=== PATIENT | female | born 1955 | race African-American/Black ===

== ENCOUNTER 2018-03-12 21:32 | Inpatient (IN) | payer MEDICAID, SELFPAY ==
[2018-03-12] MEDS ORDERED: NA CHLORIDE 0.9% 1,000 ML ONE (22:07)
[2018-03-12 22:16] LABS: Absolute Lymphocytes (CBC) 3.1 K/uL (0.7-4.9); Absolute Monocytes 1.3 K/uL (0.1-1.3); Absolute Neutrophil 20.6 K/uL (1.8-8.0); Basophils % 0.6 % (0-1.3); Eosinophils % 0.4 % (0-4.4); Lymphocytes % 12.3 % (15.3-44.8); MCH 27.4 pg (27.0-35.0); MCV 83.3 fL (80-100); MPV 9.5 fL (7.6-11.3); Monocytes % 5.2 % (3.3-12.3); RBC Red Blood Cell Count 4.93 M/uL (3.86-4.86)
[2018-03-12 22:20] LABS: Protime INR 1.16
[2018-03-12] MEDS ORDERED: LORazepam 2 MG/ML VIAL ONE (22:27)
[2018-03-12 22:28] LABS: Glucose Level 170 mg/dL (65-120); Lipase 38 U/L (22-51)
[2018-03-12 22:30] LABS: Bicarbonate 24 mEq/L (21-31); Sodium Level 137 mEq/L (135-145)
[2018-03-12 22:34] LABS: ALT/SGPT 19 IU/L (10-60); AST/SGOT 22 IU/L (10-42); Albumin 4.3 g/dL (3.2-5.5); Alcohol Serum/Plasma < 10 mg/dl; Alkaline Phosphatase 80 IU/L (42-121); BUN Blood Urea Nitrogen 11 mg/dL (6-20); Bilirubin Direct 0.1 mg/dL (0-0.2); Bilirubin Total 0.7 mg/dL (0.3-1.2); Creatine Phosphokinase 87 IU/L (22-269); Protein, Total 8.4 g/dL (6.0-8.3); Salicylates Level < 4.0 mg/dl (<30)
[2018-03-12 22:36] LABS: CKMB Creatine Kinase MB 1.5 ng/ml (0.3-4.0); Potassium 2.6 mEq/L (3.6-5.0)
[2018-03-12 23:06] LABS: Thyroid Stimulating Hormone 2.95 uIU/mL (0.34-5.60)
[2018-03-12] MEDS ORDERED: CEFTRIAXONE/SWI 1gm 1 GM/10 ML SYR ONE (23:13)
[2018-03-12 23:14] LABS: Urine Blood NEGATIVE (NEG); Urine Glucose NEGATIVE (NEG); Urine Protein 1+ (NEG)
[2018-03-12 23:26] LABS: Barbiturates NEGATIVE; Benzodiazepines POSITIVE; Cocaine NEGATIVE; METHAMPHETAM NEGATIVE; Opiates NEGATIVE; Phencyclidine NEGATIVE; THC Cannibis NEGATIVE
[2018-03-12 23:38] LABS: Blood Morphology Comment NOT SEEN (NOT SEEN); Platelet Estimate INCR
--- NOTE | 2018-03-12 23:53 | EDPHYS ---
Physician Documentation [facility] Name: Hue Chiu Age: 63 yrs Sex: Female : 1955 Arrival Date: 03/12/2018 Time: 21:40 Bed 3 Private MD: ED Physician Arturo Bhatti HPI: 03/12 21:50 This 63 yrs old Black Female presents to ER via Wheelchair with complaints of dequan HALLUCINATIONS. 21:50 The patient presents with confusion, trouble concentrating. Onset: The symptoms/episode dequan began/occurred just prior to arrival, this morning. Possible causes: unknown. Associated signs and symptoms: The patient has no apparent associated signs or symptoms. Current symptoms: In the emergency department the patient's symptoms are unchanged from the initial presentation, despite home interventions. Patient's baseline: Neuro: alert and fully oriented. The patient has not experienced similar symptoms in the past. Historical: - Allergies: 21:49 No Known Allergies; tl2 - Home Meds: 21:49 gabapentin Oral [Active]; Hydrochlorothiazide Oral [Active]; Hydrocodone-Acetaminophen tl2 Oral [Active]; Lipitor Oral [Active]; MUSCLE RELAXER [Active]; Norvasc Oral [Active]; vitamins [Active]; Xanax Oral [Active]; - PMHx: 21:49 Hypertension; tl2 - Immunization history:: Adult Immunizations up to date. - Social history:: Smoking status: Patient/guardian denies using tobacco. - Family history:: not pertinent. ROS: 21:50 Constitutional: Negative for fever, chills, and weight loss, Eyes: Negative for injury, dequan pain, redness, and discharge, ENT: Negative for injury, pain, and discharge, Neck: Negative for injury, pain, and swelling, Cardiovascular: Negative for chest pain, palpitations, and edema, Respiratory: Negative for shortness of breath, cough, wheezing, and pleuritic chest pain, Abdomen/GI: Negative for abdominal pain, nausea, vomiting, diarrhea, and constipation, Back: Negative for injury and pain, : Negative for injury, bleeding, discharge, and swelling, MS/Extremity: Negative for injury and deformity, Skin: Negative for injury, rash, and discoloration, Psych: Negative for depression, anxiety, suicide ideation, homicidal ideation, and hallucinations, Allergy/Immunology: Negative for hives, rash, and allergies, Endocrine: Negative for neck swelling, polydipsia, polyuria, polyphagia, and marked weight changes, Hematologic/Lymphatic: Negative for swollen nodes, abnormal bleeding, and unusual bruising. 21:50 Neuro: Positive for altered mental status. Exam: 21:50 Constitutional: This is a well developed, well nourished patient who is awake, alert, dequan and in no acute distress. Head/Face: Normocephalic, atraumatic. Eyes: Pupils equal round and reactive to light, extra-ocular motions intact. Lids and lashes normal. Conjunctiva and sclera are non-icteric and not injected. Cornea within normal limits. Periorbital areas with no swelling, redness, or edema. ENT: Nares patent. No nasal discharge, no septal abnormalities noted. Tympanic membranes are normal and external auditory canals are clear. Oropharynx with no redness, swelling, or masses, exudates, or evidence of obstruction, uvula midline. Mucous membranes moist. Neck: Trachea midline, no thyromegaly or masses palpated, and no cervical lymphadenopathy. Supple, full range of motion without nuchal rigidity, or vertebral point tenderness. No Meningismus. Chest/axilla: Normal chest wall appearance and motion. Nontender with no deformity. No lesions are appreciated. Cardiovascular: Regular rate and rhythm with a normal S1 and S2. No gallops, murmurs, or rubs. Normal PMI, no JVD. No pulse deficits. Respiratory: Lungs have equal breath sounds bilaterally, clear to auscultation and percussion. No rales, rhonchi or wheezes noted. No increased work of breathing, no retractions or nasal flaring. Abdomen/GI: Soft, non-tender, with normal bowel sounds. No distension or tympany. No guarding or rebound. No evidence of tenderness throughout. Back: No spinal tenderness. No costovertebral tenderness. Full range of motion. Female : Normal external genitalia. Skin: Warm, dry with normal turgor. Normal color with no rashes, no lesions, and no evidence of cellulitis. MS/ Extremity: Pulses equal, no cyanosis. Neurovascular intact. Full, normal range of motion. Psych: Awake, alert, with orientation to person, place and time. Behavior, mood, and affect are within normal limits. 21:50 Neuro: Orientation: appropriate for stated age, no acute changes, Mentation: slow to respond, Cerebellar function: is grossly normal based on the patient's age, no acute changes, Motor: moves all fours, Sensation: no obvious gross deficits, appropriate no acute changes, Gait: not tested. seizure activity, is not displayed by the patient. 23:50 Neck: ROM/movement: is normal, no acute changes, Meningeal signs: are not present, [facility] Kernig's sign is negative, Brudzinski's sign is negative. Vital Signs: 21:49 BP 152 / 80; Pulse 101; Resp 22; Temp 98.6(O); Pulse Ox 98% on R/A; Weight 104.33 kg; tl2 Height 5 ft. 3 in. (160.02 cm); Pain 0/10; 22:52 BP 129 / 72; Pulse 82; Resp 20; Pulse Ox 96% on R/A; mt 03/13 00:04 BP 134 / 73; Pulse 70; Resp 18; Pulse Ox 97% on R/A; tl2 03/12 21:49 Body Mass Index 40.74 (104.33 kg, 160.02 cm) tl2 MDM: 03/12 21:46 Patient medically screened. [facility] 21:53 Data reviewed: vital signs, nurses notes, lab test result(s), EKG, radiologic studies, [facility] plain films. 03/12 21:49 Order name: Basic Metabolic Panel; Complete Time: 23:[address] [facility] 03/12 21:49 Order name: BNP; Complete Time: 23:[address] [facility] 03/12 21:49 Order name: CBC with Diff; Complete Time: 23:[address] [facility] 03/12 21:49 Order name: Ckmb; Complete Time: 23:[address] [facility] 03/12 21:49 Order name: CPK; Complete Time: 23:[address] [facility] 03/12 21:49 Order name: LFT's; Complete Time: 23:[address] [facility] 03/12 21:49 Order name: Magnesium; Complete Time: 23:[address] [facility] 03/12 21:49 Order name: PT-INR; Complete Time: 22:[address] [facility] 03/12 21:49 Order name: Ptt, Activated; Complete Time: 22:[address] [facility] 03/12 21:49 Order name: Troponin (emerg Dept Use Only); Complete Time: 23:[address] [facility] 03/12 21:49 Order name: Acetaminophen; Complete Time: 23:[address] [facility] 03/12 21:49 Order name: ETOH Level; Complete Time: 23:[address] [facility] 03/12 21:49 Order name: Salicylate; Complete Time: 23:[address] [facility] 03/12 21:49 Order name: Urine Drug Screen; Complete Time: 01:[address] [facility] 03/12 21:49 Order name: XRAY Chest (1 view) [facility] 03/12 21:49 Order name: Lipase; Complete Time: 23:[address] [facility] 03/12 21:49 Order name: CT Head Brain wo Cont [facility] 03/12 21:49 Order name: TSH; Complete Time: 23:[address] [facility] 03/12 22:29 Order name: Blood Culture Adult (2) [facility] 03/12 23:05 Order name: Urine Dipstick--Ancillary (enter results); Complete Time: 23:48 [facility] 03/12 23:38 Order name: Manual Differential; Complete Time: 23:48 [facility] 03/12 23:49 Order name: Phosphorus [facility] 03/12 23:50 Order name: Phosphorus; Complete Time: 01:00 [facility] 03/12 21:49 Order name: EKG; Complete Time: 21:[address] [facility] 03/12 21:49 Order name: Cardiac monitoring; Complete Time: 21:[address] [facility] 03/12 21:49 Order name: EKG - Nurse/Tech; Complete Time: 22:[address] [facility] 03/12 21:49 Order name: IV Saline Lock; Complete Time: 21:[address] [facility] 03/12 21:49 Order name: Labs collected and sent; Complete Time: 21:[address] [facility] 03/12 21:49 Order name: O2 Per Protocol; Complete Time: 21:[address] [facility] 03/12 21:49 Order name: O2 Sat Monitoring; Complete Time: 21:[address] [facility] 03/12 21:49 Order name: Urine Dipstick-Ancillary (obtain specimen); Complete Time: 22:[address] [facility] 03/12 22:29 Order name: Stevens; Complete Time: 22:[address] [facility] 03/12 23:56 Order name: CONS Physician Consult EDHI Administered Medications: 22:11 Drug: NS 0.9% 1000 ml Route: IV; Rate: 1 bolus; Site: right antecubital; [facility] 03/13 01:43 Follow up: IV Status: Completed infusion; IV Intake: 1000ml [facility] 03/12 22:30 Drug: Ativan 1 mg Route: IVP; Site: right antecubital; tl2 23:00 Follow up: Response: No adverse reaction; Anxiety decreased tl2 23:23 Drug: Rocephin - (cefTRIAXone) 1 grams Route: IVPB; Infused Over: 30 mins; Site: right tl2 antecubital; 03/13 01:43 Follow up: IV Status: Completed infusion tl2 00:03 Drug: Potassium Chloride 40 mEq Route: PO; tl2 01:42 Follow up: Response: No adverse reaction tl2 00:03 Drug: Potassium Chloride 20 mEq Route: IV; Rate: per protocol; Site: right antecubital; tl2 01:42 Follow up: IV Status: Infusion continued upon admission tl2 01:00 Not Given (Duplicate Order): NS 0.9% with KCl 20 mEq/L 1000 ml IV at 125 ml/hr dequan continuous 01:42 Not Given (administered upon admission): Potassium Phosphate 15 mmol IV at per protocol tl2 once; dose as phosphate; infuse over 4-6 hours (mix in 250 mL NS) 01:42 Not Given (given upon admission): foLIC Acid 1 mg IVPB once tl2 Disposition: 03/12/18 23:53 Hospitalization ordered by Fabricio Portillo for Inpatient Admission. Preliminary diagnosis are Altered mental status, unspecified, Elevated white blood cell count, Vomiting, Hypokalemia. - Bed requested for Telemetry/MedSurg (Inpatient). - Status is Inpatient Admission. tl2 - Condition is Stable. - Problem is new. - Symptoms have improved. UTI on Admission? No Signatures: Dispatcher [employer] EDSilvia Friend RN RN mw Anderson, Corey, MD MD cha Knox, Taylor, RN RN tl2
--- NOTE | 2018-03-12 23:53 | ER ---
Nurse's Notes [facility] Name: Hue Chiu Age: 63 yrs Sex: Female : 1955 Arrival Date: 03/12/2018 Time: 21:40 Bed 3 Private MD: Diagnosis: Altered mental status, unspecified;Elevated white blood cell count;Vomiting;Hypokalemia Presentation: 03/12 21:43 Presenting complaint: Child states: Altered mental status. Patient talking to herself, mw staring at the ceiling. 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 Transition of care: patient was not received from another setting of care. Onset of symptoms was March 12, 2018 at 20:45. Care prior to arrival: None. 21:43 Method Of Arrival: Wheelchair mw 21:43 Acuity: LAKISHA 2 mw 21:44 Presenting complaint: Child states: Pt started acting strange and was not answering tl2 questions appropriately and it looked like she was seeing things. On arrival pt is able to recall name, and location but not time or situation. Denies any substance abuse. Denies pain. Family states they have never seen this behavior before. Transition of care: patient was not received from another setting of care. Onset of symptoms was March 12, 2018 at 20:00. Care prior to arrival: None. 21:44 Method Of Arrival: Wheelchair tl2 21:44 Acuity: LAKISHA 2 tl2 Triage Assessment: 21:49 General: Appears in no apparent distress. Behavior is cooperative, flat. Pain: Denies tl2 pain. Neuro: Level of Consciousness is awake, obeys commands, confused, Oriented to person, place, Corporate Quality Engineer are equal bilaterally Speech is normal, Facial symmetry appears normal, Denies dizziness. Cardiovascular: Denies chest pain. Respiratory: Airway is patent Respiratory effort is even, unlabored, Respiratory pattern is regular, symmetrical. GI: No signs and/or symptoms were reported involving the gastrointestinal system. : No signs and/or symptoms were reported regarding the genitourinary system. Derm: Skin is normal. Historical: - Allergies: 21:49 No Known Allergies; tl2 - Home Meds: 21:49 gabapentin Oral [Active]; Hydrochlorothiazide Oral [Active]; Hydrocodone-Acetaminophen tl2 Oral [Active]; Lipitor Oral [Active]; MUSCLE RELAXER [Active]; Norvasc Oral [Active]; vitamins [Active]; Xanax Oral [Active]; - PMHx: 21:49 Hypertension; tl2 - Immunization history:: Adult Immunizations up to date. - Social history:: Smoking status: Patient/guardian denies using tobacco. - Family history:: not pertinent. Screenin:54 Abuse screen: Denies threats or abuse. Nutritional screening: No deficits noted. tl2 Tuberculosis screening: No symptoms or risk factors identified. Fall Risk IV access (20 points). Mental Status- Overestimates/Forgets Limitations (15 pts.). Assessment: 21:55 General: see triage assessment. tl2 23:00 Reassessment: Pt was agitated during xray. MD notified, new order see MAR. tl2 Reassessment: Pt is resting quietly, relaxed. VSS, sotelo in place. Oriented to person and place. 03/13 00:04 Reassessment: Patient appears in no apparent distress at this time. Patient and/or tl2 family updated on plan of care and expected duration. Pain level reassessed. Pt appears more awake and alert, answers questions appropriately. Still cannot recall why she was brought to the hospital. Hallucinations have stopped. 00:47 Reassessment: Sister in law [place]. tl2 01:43 Reassessment: Patient appears in no apparent distress at this time. Patient and/or tl2 family updated on plan of care and expected duration. Pain level reassessed. Patient is alert, oriented x 3, equal unlabored respirations, skin warm/dry/pink. Pt stable and ready for transport to floor. Vital Signs: 03/12 21:49 BP 152 / 80; Pulse 101; Resp 22; Temp 98.6(O); Pulse Ox 98% on R/A; Weight 104.33 kg; tl2 Height 5 ft. 3 in. (160.02 cm); Pain 0/10; 22:52 BP 129 / 72; Pulse 82; Resp 20; Pulse Ox 96% on R/A; mt 03/13 00:04 BP 134 / 73; Pulse 70; Resp 18; Pulse Ox 97% on R/A; tl2 03/12 21:49 Body Mass Index 40.74 (104.33 kg, 160.02 cm) tl2 ED Course: 03/12 21:40 Patient arrived in ED. al2 21:44 Yari Mcduffie RN is Primary Nurse. tl2 21:46 Triage completed. mw 21:46 Arturo Bhatti MD is Attending Physician. dequan 21:49 Arm band placed on right wrist. tl2 21:54 Patient has correct armband on for positive identification. Bed in low position. Call tl2 light in reach. Side rails up X2. Adult w/ patient. 21:54 Inserted saline lock: 20 gauge in right antecubital area, using aseptic technique. tl2 Blood collected. placed by FELY Vega. Inserted saline lock: 20 gauge in left antecubital area, using aseptic technique. placed by FELY Vega. 22:23 Notified ED physician of a critical lab result(s). wbc of 25.2. fc 22:39 XRAY Chest (1 view) In Process Unspecified. EDMS 22:40 CT Head Brain wo Cont In Process Unspecified. EDMS 22:49 Sotelo cath inserted, using sterile technique, 16 Fr., by me, balloon inflated, urine jb5 specimen collected. 23:52 Fabricio Portillo MD is Hospitalizing Provider. [facility] 03/13 01:43 No provider procedures requiring assistance completed. Patient admitted, IV remains in tl2 place. Administered Medications: 03/12 22:11 Drug: NS 0.9% 1000 ml Route: IV; Rate: 1 bolus; Site: right antecubital; tl2 03/13 01:43 Follow up: IV Status: Completed infusion; IV Intake: 1000ml 2 03/12 22:30 Drug: Ativan 1 mg Route: IVP; Site: right antecubital; tl2 23:00 Follow up: Response: No adverse reaction; Anxiety decreased tl2 23:23 Drug: Rocephin - (cefTRIAXone) 1 grams Route: IVPB; Infused Over: 30 mins; Site: right tl2 antecubital; 03/13 01:43 Follow up: IV Status: Completed infusion tl2 00:03 Drug: Potassium Chloride 40 mEq Route: PO; tl2 01:42 Follow up: Response: No adverse reaction tl2 00:03 Drug: Potassium Chloride 20 mEq Route: IV; Rate: per protocol; Site: right antecubital; tl2 01:42 Follow up: IV Status: Infusion continued upon admission tl2 01:00 Not Given (Duplicate Order): NS 0.9% with KCl 20 mEq/L 1000 ml IV at 125 ml/hr [facility] continuous 01:42 Not Given (administered upon admission): Potassium Phosphate 15 mmol IV at per protocol tl2 once; dose as phosphate; infuse over 4-6 hours (mix in 250 mL NS) 01:42 Not Given (given upon admission): foLIC Acid 1 mg IVPB once tl2 Intake: 01:43 IV: 1000ml; Total: 1000ml. tl2 Outcome: 03/12 23:53 Decision to Hospitalize by Provider. [facility] 03/13 01:43 Admitted to Tele accompanied by nurse, accompanied by tech, via stretcher, room 401, tl2 with chart, Report called to FELY Villafana Condition: stable Discharge instructions given to patient, family, Instructed on the need for admit. 01:44 Patient left the ED. tl2 Signatures: Dispatcher [employer] EDMS Silvia Bob RN RN mw Anderson, Corey, MD MD cha Chretien, Felicia, RN RN fc Knox, Taylor, RN RN tl2 Siobhan Patel Moriah mt Love, Angelica al2
[2018-03-12] MEDS ORDERED: POTASSIUM CL SA 10 MEQ TAB PO ONE (23:56)
[2018-03-12] MEDS ORDERED: KCL 20 MEQ/100 mL IVPB 20 MEQ/100 ML BAG IV ONE (23:56)
[2018-03-13] MEDS ORDERED: ONDANSETRON 4 MG/2 ML VIAL IV PRN (00:17)
[2018-03-13] MEDS ORDERED: POTASSIUM PHOS 30 MM in NA CHLORIDE 0.9% 500 ML IV ONE (00:17)
[2018-03-13] MEDS ORDERED: NA CHLORIDE 0.9% 1,000 ML IV SCH (01:00)
[2018-03-13] MEDS ORDERED: FOLIC ACID 5 MG/ML VIAL ONE (01:15)
[2018-03-13] MEDS ORDERED: NA CHLORIDE 0.9% 500 ML ONE (01:16)
[2018-03-13] MEDS ORDERED: POTASSIUM PHOS IN 0.9 % NACL 15 MMOL/250 ML BAG IV ONE (01:23)
[2018-03-13] MEDS ORDERED: LORazepam 2 MG/ML VIAL IV ONE (01:56)
[2018-03-13] MEDS ORDERED: LORazepam 2 MG/ML VIAL IM ONE (02:02)
[2018-03-13] MEDS ORDERED: LORazepam 2 MG/ML VIAL ONE (02:02)
[2018-03-13] MEDS ORDERED: ZIPRASIDONE MESYLA 20 MG/VIAL IM ONE ×3 (02:10→23:02)
[2018-03-13] MEDS ORDERED: WATER FOR INJ,STERILE 10 ML ONE (02:15)
[2018-03-13] MEDS ORDERED: ZIPRASIDONE MESYLA 20 MG/VIAL IM PRN (02:39)
[2018-03-13] MEDS ORDERED: WATER FOR INJ,STERILE 10 ML IM PRN (02:39)
[2018-03-13] MEDS ORDERED: HYDRALAZINE HCL 20 MG/ML VIAL IV PRN (06:50)
[2018-03-13 07:15] LABS: Absolute Lymphocytes (CBC) 3.1 K/uL (0.7-4.9); Absolute Monocytes 1.4 K/uL (0.1-1.3); Absolute Neutrophil 17.6 K/uL (1.8-8.0); Basophils % 0.6 % (0-1.3); Eosinophils % 0.5 % (0-4.4); Hematocrit 38.4 % (36.0-45.0); Lymphocytes % 13.8 % (15.3-44.8); MCH 27.2 pg (27.0-35.0); MCV 83.6 fL (80-100); Monocytes % 6.3 % (3.3-12.3)
--- NOTE | 2018-03-13 07:17 | P.HP ---
Certification for Inpatient Patient admitted to: Inpatient With expected LOS: >2 Midnights Patient will require the following post-hospital care: None Practitioner: I am a practitioner with admitting privileges, knowledge of patient current condition, hospital course, and medical plan of care. Services: Services provided to patient in accordance with Admission requirements found in Title 42 Section 412.3 of the Code of Federal Regulations Patient History Date of Service: 03/13/18 Reason for admission: Altered mental status History of Present Illness: Patient is a 63-year-old female who presents to the hospital with altered mentation. The family states that she was not acting like herself. Normally she does all her own activities of daily living. She has a sister in law who lives around the corner from her. She states that she was staring and not responding appropriately. They decided to bring her into the hospital for further evaluation. In the ER she had a CT of the head which was negative. Patient had no meningeal signs. Her labs revealed significant hypokalemia and hypophosphatemia along with a leukocytosis. We were not able to identify a source of infection. Chest x-ray was negative. UA was negative. She had similar complaints a couple months ago when she came into the ER with a headache. At that time she was discharged home from the emergency room after her workup was unremarkable except she did have mildly elevated white blood cell count and a mildly decreased potassium level. She had a CT of the head at that time as well which did not reveal an acute pathology. Patient will be admitted to the hospital for further evaluation. The family states that she takes pain medication and anxiolytics daily. They are not sure if she has been taking her medicines as prescribed. Patient answers questions appropriately, but then she will go off on a tangent. She appears to have flights of ideas. Allergies No Known Allergies Allergy (Verified 03/13/18 02:49) - Past Medical/Surgical History Has patient received pneumonia vaccine in the past: No Diabetic: No -: HTN -: hypothyroid -: Chronic pain -: Anxiety disorder -: Left total knee replacement - Family History Father Family History: Reviewed- Non-Contributory - Social History Smoking Status: Current every day smoker Alcohol use: No CD- Drugs: Yes Caffeine use: No Place of Residence: Home Review of Systems 10-point ROS is otherwise unremarkable Physical Examination - Vital Signs Temperature: 98.2 F Blood Pressure: 127/63 Pulse: 102 Respirations: 18 Pulse Ox (%): 96 - Physical Exam General: Alert, In no apparent distress, Oriented x2, Other (Patient was combative after arriving on the floor) HEENT: Atraumatic, PERRLA, Mucous membr. moist/pink, EOMI, Sclerae nonicteric Neck: Supple, 2+ carotid pulse no bruit, No LAD, Without JVD or thyroid abnormality Respiratory: Clear to auscultation bilaterally, Normal air movement Cardiovascular: Regular rate/rhythm, Normal S1 S2, No murmurs Gastrointestinal: Normal bowel sounds, Soft and benign, Non-distended, No tenderness Musculoskeletal: No clubbing, No swelling, No tenderness Integumentary: No rashes Neurological: Normal gait, Normal speech, Normal strength at 5/5 x4 extr, Normal tone, Sensation intact, Cranial nerves 3-12 intact, Normal affect Lymphatics: No axilla or inguinal lymphadenopathy - Studies Laboratory Data (last 24 hrs) 03/12/18 21:50: Phosphorus 1.7 L 03/12/18 21:50: PT 13.7 H, INR 1.16, APTT 24.4 03/12/18 21:50: WBC 25.2 H*, Hgb 13.5, Hct 41.0, Plt Count 520 H 03/12/18 21:50: B-Natriuretic Peptide 31 03/12/18 21:50: Sodium 137, Potassium 2.6 L*, BUN 11, Creatinine 0.89, Glucose 170 H, Magnesium 2.0, Total Bilirubin 0.7, AST 22, ALT 19, Alkaline Phosphatase 80, Lipase 38 Microbiology Data (last 24 hrs): 03/12/18 23:18 Blood - Blood Anaerobic Blood Culture - Final 03/12/18 23:12 Blood - Blood Anaerobic Blood Culture - Final Assessment & Plan - Problems (Diagnosis) (1) Altered mental status Current Visit: Yes Status: Acute (2) Combative behavior Current Visit: Yes Status: Acute (3) Hypokalemia Current Visit: Yes Status: Acute (4) Hypophosphatemia Current Visit: Yes Status: Acute (5) Leukocytosis Current Visit: Yes Status: Acute - Plan Plan: 1. IV hydration 2. Resume home medications 3. Will give sedatives as needed. Family is to stay with the patient 4. Prophylactic IV antibiotics 5. If symptoms continue to worsen may need further diagnostic studies including MRI and LP 6. Replace electrolytes 7. GI and DVT prophylaxis Discharge Plan: Home Plan to discharge in: Greater than 2 days - Advance Directives Does patient have a Living Will: No Does patient have a Durable POA for Healthcare: No - Code Status/Comfort Care Code Status Assessed: Yes Code Status: Full Code Critical Care: No Time Spent Managing PTS Care (In Minutes): 50
--- NOTE | 2018-03-13 08:10 | RAD REPORT ---
EXAM DESCRIPTION: CT - Head Brain Wo Cont - 03/13/2018 6:41 am CLINICAL HISTORY: Transient alteration of awareness. A preliminary written report was provided at the time of the study, and the report was reviewed prio r to final dictation. COMPARISON: CT head January 22 TECHNIQUE: Axial 5 mm thick images of the head were obtained without IV contrast. All CT scans are performed using dose optimization technique as appropriate and may include automated exposure control or mA/KV adjustment according to patient size. FINDINGS: No intracranial hemorrhage, mass, edema or shift of mid-line structures. No acute infarcti on changes seen. No abnormal extra-axial fluid collections. Ventricles are normal. No significant atr ophy or chronic ischemic changes. Arterial and physiologic calcifications are present. Mastoid air cells and visualized portions of the paranasal sinuses are clear. No acute bony findings. IMPRESSION: Negative CT head for acute finding. No significant change from the comparison.
[2018-03-13 08:18] LABS: ALT/SGPT 16 IU/L (10-60); AST/SGOT 18 IU/L (10-42); Albumin 3.7 g/dL (3.2-5.5); Alkaline Phosphatase 70 IU/L (42-121); BUN Blood Urea Nitrogen 9 mg/dL (6-20); Bicarbonate 26 mEq/L (21-31); Bilirubin Total 0.6 mg/dL (0.3-1.2); Glucose Level 88 mg/dL (65-120); Magnesium 2.2 mg/dL (1.8-2.5); Potassium 3.4 mEq/L (3.6-5.0); Sodium Level 141 mEq/L (135-145)
[2018-03-13] MEDS: ENOXAPARIN 40 MG/0.4 ML SQ SCH (08:23)
[2018-03-13] MEDS: ASPIRIN EC 81 MG TAB PO SCH (08:23)
[2018-03-13] MEDS: CEFTRIAXONE/SWI 1gm 1 GM/10 ML SYR IV SCH (08:23)
--- NOTE | 2018-03-13 08:31 | RAD REPORT ---
EXAM DESCRIPTION: RAD - Chest Single View - 03/12/2018 10:41 pm CLINICAL HISTORY: Altered mental status, cough COMPARISON: January 22 TECHNIQUE: AP portable chest image was obtained 2231 hours . FINDINGS: Lung volumes are low. No failure, infiltrate or mass identifiable. Lung markings are simil ar to comparison. Heart and vasculature are normal. No measurable pleural effusion and no pneumothora x. No gross bony abnormality seen. No acute aortic findings suspected. IMPRESSION: No acute cardiopulmonary process. No significant interval change.
[2018-03-13] MEDS ORDERED: POTASSIUM PHOS IN 0.9 % NACL 15 MMOL/250 ML BAG IV SCH (09:00)
[2018-03-13] MEDS ORDERED: CEFTRIAXONE 1 GM/NS 50 ML 1 GM/50 ML BAG IV SCH (09:00)
--- NOTE | 2018-03-13 09:21 | RAD REPORT ---
EXAM DESCRIPTION: MIGUEL - VALENTINE - 03/13/2018 8:55 am CLINICAL HISTORY: Altered mental status, CVA, hypertension COMPARISON: None. TECHNIQUE: Real-time sonographic evaluation of both carotid systems was performed. Doppler interroga tion was performed with waveform tracing bilaterally. FINDINGS: Normal high resistance waveforms are noted in both external carotid arteries. The common c arotid arteries and internal carotid arteries show normal low resistance waveforms. Plaquing changes are present in each carotid bulb. This does not significantly narrow a vessel lumen. No dissection changes seen. Peak systolic and end diastolic velocity values and the ICA/CCA ratios a re in the non-hemodynamically significant range. Antegrade flow seen in both vertebral arteries. Velocity values and ratios were recorded and are retained in the patient's imaging records. IMPRESSION: Mild bilateral carotid bulb plaquing changes. No evidence of a hemodynamically significant stenosis.
[2018-03-13] MEDS: LORazepam 2 MG/ML VIAL IV PRN ×3 (09:40→22:24)
--- NOTE | 2018-03-13 11:04 | RAD REPORT ---
EXAM DESCRIPTION: MRI - Stroke Protocol - 03/13/2018 10:48 am CLINICAL HISTORY: Altered mental status, hypertension, suspected CVA COMPARISON: CT head March 12, CT imaging March 2011 TECHNIQUE: Sagittal T1- weighted images were obtained along with PD/heavily T2- weighted and T2-FLAI R images. Axial DWI and ADC mapping sequences were also obtained. Coronal heavily T2- weighted images were obtained. MRA head imaging performed with source images and 3D reconstruction images reviewed. MRA neck imaging was performed with source and 3D reconstruction imaging reviewed. Post contrast T1 i maging was performed. A 20 ml GD dosage was utilized. FINDINGS: No intracranial hemorrhage, mass or acute infarction. There is no edema or shift of midlin e structures. No extra-axial fluid collections. Rivera-matter/white matter junction is preserved. Signa l voids are seen as a normal finding in the major intracranial vessels. Postcontrast imaging shows no enhancement abnormality or thickening of the dura. No enhancement abnormality of the brain parenchym a. Mastoid air cells and paranasal sinuses are clear. No globe or orbit abnormality. MRA Head imaging shows moderate atherosclerotic changes in the right middle cerebral artery M2 branch es. Focal narrowing is seen at the right anterior cerebral A1 -A2 junction. No aneurysm or vascular m alformation. No basilar stenosis. Atherosclerotic changes are present in the cavernous portions of th e right internal carotid artery. MRA Neck imaging shows no significant atherosclerotic disease or vessel narrowing seen. No dissection seen.Vertebral arteries are codominant. In the right right parietal bone diploic space there is a 4-5 mm area of focal enhancement. This is s lightly hyperintense on T2 sequencing. A small lucent area is seen on the most recent CT study as wel l as the March 2011 study. Etiology is not certain. This could be a small intraosseous meningioma or other benign process. The CT finding is believed to be the correlate to the MRI finding. Absence of a ny significant change would strongly support a benign etiology. No other area of cranial vault signal abnormality or enhancement. IMPRESSION: No acute infarction changes. No hemorrhage, mass or acute brain parenchymal process. No dural abnormality seen. MRA imaging shows intracranial atherosclerotic change but no aneurysm or vascular malformation. No si gnificant cervical carotid or vertebral disease. Small enhancing focus in the right parietal bone is believed to be a finding that is stable back to 2 011.
--- NOTE | 2018-03-13 13:13 | ECHO ---
HEIGHT: 5 ft 3 in WEIGHT: 230 lb 0 oz DATE OF STUDY: 03/13/[address]: Dank Bell DO 2-DIMENSIONAL: YES M.MODE: YES DOPPLER: YES COLOR FLOW: YES TDS: NO PORTABLE: NO DEFINITY: NO BUBBLE STUDY: NO DIAGNOSIS: ALTERED MENTAL STATUS, HYPERTENSION CARDIAC HISTORY: CATHERIZATION: NO SURGERY: NO PROSTHETIC VALVE: NO PACEMAKER: NO MEASUREMENTS (cm) DIASTOLIC (NORMALS) SYSTOLIC (NORMALS) IVSd 1.0 (0.6-1.2) LA Diam 3.0 (1.9-4.0) LVEF 52% LVIDd 3.9 (3.5-5.7) LVIDs 2.9 (2.0-3.5) %FS 26% LVPWd 1.0 (0.6-1.2) Ao Diam 2.4 (2.0-3.7) 2 DIMENSIONAL ASSESSMENT: RIGHT ATRIUM: NORMAL LEFT ATRIUM: NORMAL RIGHT VENTRICLE: NORMAL LEFT VENTRICLE: NORMAL TRICUSPID VALVE: NORMAL MITRAL VALVE: NORMAL PULMONIC VALVE: NORMAL AORTIC VALVE: NORMAL PERICARDIAL EFFUSION: NONE AORTIC ROOT: NORMAL LEFT VENTRICULAR WALL MOTION: NORMAL DOPPLER/COLOR FLOW: MILD TRICUSPID REGURGITATION. COMMENTS: MILD TRICUSPID REGURGITATION. MILD PULMONARY HYPERTENSION. RIGHT VENTRICULAR SYSTOLIC PRESSURE 38mmHg. NORMAL LEFT VENTRICULAR EJECTION FRACTION. NO MITRAL VALVE PROLAPSE. NO WALL MOTION ABNORMALITY. TECHNOLOGIST: Bright LUJAN
--- NOTE | 2018-03-13 13:21 | P.PN ---
Subjective Date of Service: 03/13/18 Primary Care Provider: Dr. Chicas; Chief Complaint: Altered mental status Subjective: Improving Physical Examination - Vital Signs Temperature: 97.2 F Blood Pressure: 132/66 Pulse: 97 Respirations: 16 Pulse Ox (%): 94 - Physical Exam General: Alert, In no apparent distress, Oriented x3, Cooperative HEENT: Atraumatic Neck: Supple Respiratory: Clear to auscultation bilaterally, Normal air movement Cardiovascular: Normal pulses, Regular rate/rhythm Gastrointestinal: Normal bowel sounds, Soft and benign, Non-distended, No tenderness, No masses, No rebound, No guarding Musculoskeletal: No erythema, No tenderness, No warmth Integumentary: No tenderness/swelling, No erythema, No warmth, No cyanosis Neurological: Normal speech, Normal strength at 5/5 x4 extr, Normal tone, Normal affect - Studies Laboratory Data (last 24 hrs) 03/12/18 21:50: Phosphorus 1.7 L 03/12/18 21:50: PT 13.7 H, INR 1.16, APTT 24.4 03/12/18 21:50: WBC 25.2 H*, Hgb 13.5, Hct 41.0, Plt Count 520 H 03/12/18 21:50: B-Natriuretic Peptide 31 03/12/18 21:50: Sodium 137, Potassium 2.6 L*, BUN 11, Creatinine 0.89, Glucose 170 H, Magnesium 2.0, Total Bilirubin 0.7, AST 22, ALT 19, Alkaline Phosphatase 80, Lipase 38 Microbiology Data (last 24 hrs): 03/12/18 23:18 Blood - Blood Anaerobic Blood Culture - Final 03/12/18 23:12 Blood - Blood Anaerobic Blood Culture - Final Medications List Reviewed: Yes Assessment & Plan - Problems (Diagnosis) (1) UTI (urinary tract infection) Current Visit: Yes Status: Suspected Plan: Will obtain urine culture. Pro calcitonin pending. Patient with leukocytosis. Suspect infectious process. Will continue with Rocephin. Await results. Patient is back to her normal baseline. Qualifiers: Urinary tract infection type: site unspecified (2) Hypertension Current Visit: Yes Status: Chronic Plan: Will continue with her medication. Will monitor and adjust appropriately. Qualifiers: Hypertension type: essential hypertension Qualified Code(s): I10 - Essential (primary) hypertension (3) Hyperlipidemia Current Visit: Yes Status: Chronic Plan: Will continue with medication. Qualifiers: Hyperlipidemia type: unspecified Qualified Code(s): E78.5 - Hyperlipidemia , unspecified (4) Hypothyroidism Current Visit: Yes Status: Chronic Plan: Will continue with her medication. Tsh within normal range Qualifiers: Hypothyroidism type: unspecified Qualified Code(s): E03.9 - Hypothyroidism , unspecified (5) Chronic pain Current Visit: Yes Status: Chronic Plan: Patient with chronic pain. Patient without pain at this time. Will hold medication. Patient may need to limit pain medication at home. Recommendation for the patient to see pain management as an outpatient to further address. Qualifiers: Chronic pain type: chronic pain syndrome Qualified Code(s): G89.4 - Chronic pain syndrome (6) Anxiety Current Visit: Yes Status: Chronic Plan: Patient with history anxiety. She is taking benzodiazepines in the outpatient. Recommendation is to wean off benzodiazepine as an outpatient. Will monitor closely. (7) Altered mental status Onset Date: 03/13/18 Current Visit: Yes Status: Acute Plan: Patient appears to be back to her baseline. Patient did receive medication last night. Suspect infectious encephalopathy. Patient also had electrolyte abnormalities. Will continue to monitor closely. Will adjust IV fluids. Patient on antibiotic therapy. Await urine and blood cultures. MRI brain shows no acute stroke. Carotid Doppler shows no carotid stenosis. Await echocardiogram. Will ambulate with physical therapy. Qualifiers: Altered mental status type: unspecified Qualified Code(s): R41.82 - Altered mental status, unspecified (8) Combative behavior Onset Date: 03/13/18 Current Visit: Yes Status: Acute Plan: Will provide medication as needed. This appears resolved. (9) Hypokalemia Onset Date: 03/13/18 Current Visit: Yes Status: Acute Plan: Will continue with replacement protocol. (10) Hypophosphatemia Onset Date: 03/13/18 Current Visit: Yes Status: Acute Plan: Will continue with replacement protocol. (11) Leukocytosis Onset Date: 03/13/18 Current Visit: Yes Status: Acute Plan: Leukocytosis likely related to underlying UTI. Will continue with antibiotic therapy. Will monitor closely. Blood and urine cultures obtained. (12) Encephalopathy Current Visit: Yes Status: Acute Plan: This is likely infectious with a component of metabolic. Electrolytes being corrected. Patient on Rocephin. Suspect UTI. Urine and blood obtained. Await pro calcitonin. EEG ordered. MRI shows no acute stroke. Carotid Doppler unremarkable. Echocardiogram pending. Will have physical therapy assess and ambulate. (13) Obesity Current Visit: Yes Status: Chronic Plan: Will provide lifestyle modification education. Qualifiers: Obesity type: due to excess calories Obesity classification: adult class 3 (BMI >= 40) Serious obesity comorbidity presence: with serious comorbidity Body mass index: BMI 40.0-44.9 Qualified Code(s): E66.01 - Morbid (severe) obesity due to excess calories; Z68.41 - Body mass index (BMI) 40.0-44.9, adult ; Z68.41 - Body mass index (BMI) 40.0-44.9, adult; Z68.41 - Body mass index (BMI ) 40.0-44.9, adult; Z68.41 - Body mass index (BMI) 40.0-44.9, adult Discharge Plan: Home Plan to discharge in: 24 Hours Time Spent Managing Pts Care (In Minutes): 55
[2018-03-13] MEDS: NACHLORIDE 0.45% 1,000 ML IV SCH (14:00)
[2018-03-13 16:00] LABS: Absolute Lymphocytes (CBC) 3.8 K/uL (0.7-4.9); Absolute Monocytes 1.7 K/uL (0.1-1.3); Absolute Neutrophil 17.1 K/uL (1.8-8.0); Basophils % 0.7 % (0-1.3); Eosinophils % 0.6 % (0-4.4); Lymphocytes % 16.7 % (15.3-44.8); MCH 27.5 pg (27.0-35.0); MCV 83.5 fL (80-100); MPV 9.2 fL (7.6-11.3); Monocytes % 7.6 % (3.3-12.3); RBC Red Blood Cell Count 4.55 M/uL (3.86-4.86)
[2018-03-13 16:15] LABS: Bicarbonate 24 mEq/L (21-31); Glucose Level 116 mg/dL (65-120); Potassium 3.4 mEq/L (3.6-5.0); Sodium Level 139 mEq/L (135-145)
[2018-03-13 16:18] LABS: ALT/SGPT 16 IU/L (10-60); AST/SGOT 17 IU/L (10-42); Albumin 3.8 g/dL (3.2-5.5); Alkaline Phosphatase 68 IU/L (42-121); BUN Blood Urea Nitrogen 10 mg/dL (6-20); Bilirubin Total 0.4 mg/dL (0.3-1.2); Creatine Phosphokinase 107 IU/L (22-269); Protein, Total 7.3 g/dL (6.0-8.3)
[2018-03-13 16:24] LABS: CKMB Creatine Kinase MB 1.5 ng/ml (0.3-4.0)
[2018-03-13] MEDS: levETIRAcetam 500 MG in NA CHLORIDE 0.9% 100 ML IV SCH (17:13)
--- NOTE | 2018-03-13 17:24 | RAD REPORT ---
EXAM DESCRIPTION: MRI - Brain Wo Cont - 03/13/2018 5:10 pm CLINICAL HISTORY: CVA, new onset symptoms from earlier in the day COMPARISON: MRI March 13 TECHNIQUE: Sagittal T1-weighted images were obtained along with axial PD, heavily T2-weighted and T2 -FLAIR images. Axial DWI and ADC mapping sequences were also obtained along with coronal heavily T2-w eighted images. FINDINGS: Diffusion-weighted imaging shows no acute infarction. No hemorrhage is identified. Exam romero s far greater motion than the earlier study. Atrophy and chronic ischemic pattern is stable. IMPRESSION: No acute infarction. No identifiable change from earlier in the day.
[2018-03-13] MEDS: ALPRAZOLAM 1 MG TABLET PO PRN ×2 (20:10→21:56)
[2018-03-13] MEDS: ATORVASTATIN 40 MG TAB PO SCH (20:10)
[2018-03-14] MEDS: LORazepam 2 MG/ML VIAL IV PRN (04:30)
[2018-03-14] MEDS: levETIRAcetam 500 MG in NA CHLORIDE 0.9% 100 ML IV SCH ×2 (05:08→18:00)
[2018-03-14] MEDS: NACHLORIDE 0.45% 1,000 ML IV SCH ×4 (05:12→18:08)
[2018-03-14 06:02] LABS: BUN Blood Urea Nitrogen 8 mg/dL (6-20); Glucose Level 87 mg/dL (65-120); Magnesium 2.2 mg/dL (1.8-2.5); Phosphorus 3.2 mg/dL (2.5-4.3)
[2018-03-14 06:11] LABS: Bicarbonate 24 mEq/L (21-31); Sodium Level 142 mEq/L (135-145)
[2018-03-14] MEDS: KCL 20 MEQ/100 mL IVPB 20 MEQ/100 ML BAG IV SCH ×2 (06:42→10:28)
[2018-03-14 06:50] VITALS: BMI 40.5
[2018-03-14 07:08] LABS: Basophils % 0.8 % (0-1.3); Eosinophils % 2.5 % (0-4.4); MCV 83.9 fL (80-100); MPV 9.6 fL (7.6-11.3); RBC Red Blood Cell Count 4.29 M/uL (3.86-4.86)
[2018-03-14] MEDS ORDERED: AMLODIPINE 10 MG TAB PO SCH (09:00)
[2018-03-14] MEDS: ENOXAPARIN 40 MG/0.4 ML SQ SCH (09:00)
[2018-03-14] MEDS: AMLODIPINE 10 MG TAB PO SCH (10:26)
[2018-03-14] MEDS: LEVOTHYROXINE SOD 0.088 MG TAB PO SCH (10:26)
[2018-03-14] MEDS: ASPIRIN EC 81 MG TAB PO SCH (10:27)
[2018-03-14] MEDS: CEFTRIAXONE/SWI 1gm 1 GM/10 ML SYR IV SCH (10:53)
--- NOTE | 2018-03-14 11:17 | PN ---
Date of Progress Note: 03/14/2018 Subjective: The patient was seen and examined. Chart was reviewed and case discussed with RN. The patient awake, alert, and oriented x3. States that she wants to go to drug rehab. She has a problem with benzodiazepines and narcotics. Review of Systems: Negative except as above. Medications: Reviewed. Physical Examination: Vital Signs: Temperature 98, heart rate 75, blood pressure 116/62, respirations 22, O2 86% on room a ir. General: Awake, alert, oriented x3. No acute distress. Obese, BMI 40. CV: S1, S2. No murmurs. Regular rate and rhythm. Peripheral pulses present. Respiratory: Moving air well bilaterally. No wheezing. Abdomen: Abdomen is soft, nontender, nondistended. Positive bowel sounds. Extremities: No clubbing, cyanosis, edema. Neurologic: Nonfocal. Laboratory Data: Sodium 142, potassium 3, chloride 113, CO2 of 24, BUN 8, creatinine 0.66, glucose 8 7, calcium 8.9. WBC 16.5, H and H 12 and 36, platelets 360. Blood cultures no growth to date. Urin e culture pending. Assessment And Plan: A 63-year-old female with: 1.Metabolic encephalopathy, improving, likely related to urinary tract infection, stroke, rule out. MRI is negative. 2.Urinary tract infection, acute cystitis without hematuria. Urine culture is pending. We will con tinue with IV antibiotics. The patient's white count still elevated. 3.Essential hypertension. Continue with medications. 4.Hyperlipidemia. 5.Continue statin. 6.Hypothyroidism. TSH normal. Continue replacement. 7.Chronic pain syndrome. The patient states that she has a problem with abusing narcotics. We will hold the pain medications for now. 8.Generalized anxiety disorder. Weaned off benzos. 9.Combative behavior, resolved. 10.Hypokalemia, replace and monitor. 11.Hypophosphatemia, replace and monitor. 12.Morbid obesity BMI 40. Counseled. Plan: Move out of ICU. Echocardiogram shows EF 52%, mild pulmonary hypertension. No wall motion ab normality. SA/MODL Voice ID: [id number] Report ID: [id number]
[2018-03-14] MEDS: ATORVASTATIN 40 MG TAB PO SCH (20:50)
[2018-03-15] MEDS: NACHLORIDE 0.45% 1,000 ML IV SCH ×2 (05:13→05:19)
[2018-03-15] MEDS: levETIRAcetam 500 MG in NA CHLORIDE 0.9% 100 ML IV SCH ×2 (05:13→05:19)
[2018-03-15 05:18] LABS: Absolute Lymphocytes (CBC) 2.7 K/uL (0.7-4.9); Absolute Monocytes 0.9 K/uL (0.1-1.3); Absolute Neutrophil 12.8 K/uL (1.8-8.0); Basophils % 1.1 % (0-1.3); Eosinophils % 2.1 % (0-4.4); Hematocrit 36.9 % (36.0-45.0); Lymphocytes % 16.1 % (15.3-44.8); MCH 27.7 pg (27.0-35.0); MCV 84.2 fL (80-100); MPV 9.3 fL (7.6-11.3); Monocytes % 5.5 % (3.3-12.3); RBC Red Blood Cell Count 4.39 M/uL (3.86-4.86)
[2018-03-15 05:36] LABS: BUN Blood Urea Nitrogen 8 mg/dL (6-20); Bicarbonate 25 mEq/L (21-31); Glucose Level 91 mg/dL (65-120); Magnesium 2.1 mg/dL (1.8-2.5); Potassium 3.1 mEq/L (3.6-5.0); Sodium Level 141 mEq/L (135-145)
[2018-03-15] MEDS: LEVOTHYROXINE SOD 0.088 MG TAB PO SCH (07:30)
[2018-03-15] MEDS: AMLODIPINE 10 MG TAB PO SCH (09:00)
[2018-03-15] MEDS: CEFTRIAXONE/SWI 1gm 1 GM/10 ML SYR IV SCH (09:00)
[2018-03-15] MEDS: ENOXAPARIN 40 MG/0.4 ML SQ SCH (09:00)
[2018-03-15] MEDS ORDERED: hydroCHLOROthiazide 25 MG TAB PO SCH (09:00)
--- NOTE | 2018-03-15 09:22 | P.PN ---
Subjective Date of Service: 03/15/18 (Hospitalist) Primary Care Provider: Dr. Chicas; Chief Complaint: Altered mental status Subjective: Improving (Patient is alert oriented responsive cooperative in no complaints) Review of Systems Unremarkable Physical Examination - Vital Signs Temperature: 97.4 F Blood Pressure: 127/59 Pulse: 70 Respirations: 18 Pulse Ox (%): 96 - Physical Exam General: Alert, Oriented x3 HEENT: Atraumatic Neck: Supple Respiratory: Clear to auscultation bilaterally Cardiovascular: No edema, Regular rate/rhythm - Studies Medications List Reviewed: Yes Assessment & Plan - Problems (Diagnosis) (1) Altered mental status Onset Date: 03/13/18 Current Visit: Yes Status: Acute Plan: Patient is 63 years of age admitted with altered mental status metabolic encephalopathy possibly drug-induced no evidence of infection although white count is slightly elevated she appears to be acting strange in suspicious up on the floor vital signs are all stable no evidence of sepsis Be to verify her home situation with the daughter of stopped quite a few of her medications observe today Qualifiers: Altered mental status type: unspecified Qualified Code(s): R41.82 - Altered mental status, unspecified
[2018-03-15] MEDS: ASPIRIN EC 81 MG TAB PO SCH (09:43)
[2018-03-15] MEDS: KCL 20 MEQ/100 mL IVPB 20 MEQ/100 ML BAG IV SCH ×2 (09:44→10:00)
[2018-03-15] MEDS ORDERED: POTASSIUM CL SA 10 MEQ TAB PO ONE ×3 (11:00→21:00)
[2018-03-15] MEDS: ATORVASTATIN 40 MG TAB PO SCH (20:39)
--- NOTE | 2018-03-15 22:41 | EKG ---
Test Date: 2018-03-13 Test Time: 16:45:33 Integrated Circuit Ic Layout Designer: MARIA A MEASUREMENT RESULTS: Intervals: Rate: 70 NM: 130 QRSD: 104 QT: 416 QTc: 449 [place]: P: 35 NM: 130 QRS: -31 T: 36 INTERPRETIVE STATEMENTS: Normal sinus rhythm Left axis deviation Pulmonary disease pattern Abnormal ECG Compared to ECG 03/12/2018 22:02:49 Left-axis deviation now present Left anterior fascicular block no longer present Electronically Signed On 03-15-18 22:40:53 CDT by Maxime Mendoza
--- NOTE | 2018-03-15 22:46 | EKG ---
Test Date: 2018-03-12 Test Time: 22:02:49 Gasoline Tractor Operator: ABEBE MEASUREMENT RESULTS: Intervals: Rate: 88 GA: 140 QRSD: 102 QT: 378 QTc: 457 [place]: P: 53 GA: 140 QRS: -49 T: 74 INTERPRETIVE STATEMENTS: Normal sinus rhythm Left anterior fascicular block Abnormal ECG Compared to ECG 01/22/2018 01:26:12 Left anterior fascicular block now present Electronically Signed On 03-15-18 22:46:12 CDT by Maxime Mendoza
--- NOTE | 2018-03-15 22:47 | EKG ---
Test Date: 2018-03-12 Test Time: 22:02:22 Community Support Professional: ABEBE MEASUREMENT RESULTS: Intervals: Rate: 98 NE: 140 QRSD: 100 QT: 370 QTc: 472 [place]: P: 59 NE: 140 QRS: -56 T: 73 INTERPRETIVE STATEMENTS: Normal sinus rhythm Left anterior fascicular block Abnormal ECG Compared to ECG 01/22/2018 01:26:12 Left anterior fascicular block now present Electronically Signed On 03-15-18 22:46:15 CDT by Maxime Mendoza
[2018-03-16 05:19] LABS: Absolute Lymphocytes (CBC) 3.3 K/uL (0.7-4.9); Absolute Neutrophil 13.9 K/uL (1.8-8.0); Basophils % 0.4 % (0-1.3); Eosinophils % 1.6 % (0-4.4); Hematocrit 37.5 % (36.0-45.0); Lymphocytes % 17.8 % (15.3-44.8); MCH 27.8 pg (27.0-35.0); MCV 84.1 fL (80-100); MPV 9.6 fL (7.6-11.3); Monocytes % 5.6 % (3.3-12.3); RBC Red Blood Cell Count 4.46 M/uL (3.86-4.86)
[2018-03-16 05:31] LABS: BUN Blood Urea Nitrogen 10 mg/dL (6-20); Bicarbonate 24 mEq/L (21-31); Glucose Level 113 mg/dL (65-120); Magnesium 2.1 mg/dL (1.8-2.5); Potassium 3.5 mEq/L (3.6-5.0); Sodium Level 141 mEq/L (135-145)
[2018-03-16] MEDS ORDERED: POTASSIUM CL SA 10 MEQ TAB PO ONE (07:00)
[2018-03-16] MEDS: ASPIRIN EC 81 MG TAB PO SCH (07:48)
[2018-03-16] MEDS: LEVOTHYROXINE SOD 0.088 MG TAB PO SCH (07:48)
--- NOTE | 2018-03-16 11:20 | PN ---
Date of Progress Note: 03/16/2018 Subjective: The patient is seen, chart reviewed, and case discussed with RN. Initially, the patient was following commands, but did not speak or answer any questions. The patient did have some agitat ion overnight; however; once daughter arrived, the patient was talkative and answering questions appr opriately. She does wish to seek rehab for her to go off narcotics and benzodiazepines. Review of Systems: Negative except as above. Medications: Reviewed. Physical Examination: Vital Signs: Temperature 97.4, heart rate 70, blood pressure 177/88, respirations 18, O2 97% on room air. General: Awake, alert, oriented x3. No acute distress. Morbidly obese female. BMI 40. CV: S1, S2. No murmurs. Regular rate and rhythm. Peripheral pulses present. Respiratory: Moving air well bilaterally. No wheezing. Gastrointestinal: Soft abdomen, nontender, nondistended. Positive bowel sounds. Extremities: No clubbing, cyanosis, edema. Neurologic: Nonfocal. Psych: Mood is dysphoric. Affect is flat. Insight and judgment are poor. Laboratory Data: Sodium 141, potassium 3.5, chloride 108, CO2 24, BUN 10, creatinine 0.66, glucose 1 13, calcium 9.8, magnesium 2.1. WBC 18.6, H and H 12.4 and 37.5, platelets 388, neutrophils 74%. Bl ood cultures, no growth to date. Urine culture, no growth. Assessment And Plan: A 63-year-old female with: 1.Acute metabolic encephalopathy, resolved, likely secondary to urinary tract infection, cerebrovasc ular accident without. 2.Urinary tract infection, acute cystitis without hematuria. Urine culture shows mixed rodney. Whit e count still elevated. The patient is afebrile. Blood cultures, no growth to date. 3.Essential hypertension, stable. Continue medications. 4.Hyperlipidemia, statin. 5.Hypothyroidism. Continue Synthroid. 6.Chronic pain syndrome, being weaned off narcotics. 7.Generalized anxiety disorder. Hold benzodiazepines. 8.Combative behavior, agitation, improved. 9.Hypokalemia, replace and monitor. 10.Hypophosphatemia, replace and monitor. 11.Morbid obesity, BMI of 40. Plan: Social workers consulted for possible rehab placement to wean off narcotics and benzodiazepine . We will recheck procalcitonin level. Currently, no signs of sepsis. The patient is afebrile, unc lear etiology of elevated white blood cell count. We will continue to monitor. SA/MODL Voice ID: [id number] Report ID: [id number]
[2018-03-16] MEDS: ENOXAPARIN 40 MG/0.4 ML SQ SCH (17:00)
[2018-03-16] MEDS: ALPRAZOLAM 1 MG TABLET PO PRN (20:51)
[2018-03-16] MEDS: ATORVASTATIN 40 MG TAB PO SCH (20:51)
[2018-03-16] MEDS: RANITIDINE 150 MG TABLET PO SCH (20:51)
[2018-03-16 23:17] VITALS: O2SAT 98
--- NOTE | 2018-03-16 23:34 | CON ---
Reason For Consultation: Consultation called because of altered mental status. History Of Present Illness: Ms. Chiu is a 63-year-old patient who has hypertensi on, hypothyroidism, and chronic pain that is managed by chest painting leader in [place] at [facility]. Per the patient's family, who is in the room, which is [id number] and gabriele ce and son, she began acting quite confused a few days ago after she reportedly stopped all of her pa in medications including benzodiazepines. She would act strangely, speak out of turn, and seemed to not answer questions directly and may stare off and not respond. The patient reportedly brought hers elf to the hospital for evaluation. Her brain imaging included a normal head CT scan. Brain MRI and MRA also showing no acute ischemic or hemorrhagic change and a repeat brain MRI showing again no acu te ischemic or hemorrhagic change. She also had an EEG that is unremarkable. Her blood work did rio w an admission elevated white blood cell count with elevated neutrophils suggestive of a potential sy stemic infection. Her procalcitonin level however is normal at less than 0.05. Prolactin normal at 36.6. She did have slightly low potassium of 3.4, which shows lowest at 3.1 and slightly elevated vi tamin B12 of 1490. Urinalysis showed 2+ ketones, 1+ protein. Her drug screen was positive for benzo diazepines. During the hospitalization, she had a Code Stroke called and a repeat brain MRI as indicated, was unr emarkable for any acute ischemic or hemorrhagic stroke. She has been using the arms and legs equally well, interacting, and actually able to smile, move her face equally well, and shows no focal defici ts when the family was asked about that or the patient herself. Past Medical History: As indicated above, hypertension, hypothyroidism, chronic pain, anxiety. Past Surgical History: Left total knee replacement. Family History: Noncontributory. Social History: Smokes on a daily basis. No alcohol or IV drugs. Allergies: NO KNOWN DRUG ALLERGIES. Current Medications: Currently Xanax 1 mg every 3 hours as needed, Lipitor 40 mg daily, aspirin 81 m g daily, Lovenox 40 mg subcutaneously daily, Synthroid 0.088 mg daily, Zantac 150 mg twice daily. Review of Systems: Not reliable at this point. Physical Examination: Vital Signs: Blood pressure 153/80, pulse 75, respiratory rate 18, temperature 99.1, ox saturation 9 9% on room air. Weight 228 pounds. Height 5 feet 3 inches. General: Ms. Chiu is resting in bed. She is alert. She is oriented to place, although her answe rs are somewhat slow. HEENT: She is normocephalic, atraumatic. Sclerae anicteric. Oropharynx is pink and moist. Neck: Supple. Chest: Clear. Heart: Regular. She is obese with a BMI of 40. Neurological: As indicated, the patient does follow commands appropriately, although she has a very flat and inappropriate affect, making gestures with her hands of sexual activity while she is being e valuated. She does not, on cranial nerve examination, have any focal deficits. Motor examination, s he moves arms and legs equally well. She has normal tone in upper and lower extremities. No sensory deficits. No abnormalities on reflex examination or coordination examination. Assessment: Ms. Chiu is a 63-year-old patient with no neurological deficits, per examination, nor mal EEG, and unremarkable brain MRI. Her condition is at this point, most likely psychiatric and not neurologic. She may also have medication related issues related to her pain medications. At this p oint, no further neurological evaluation is needed. She should be under psychiatric care for further management. Otherwise, she should follow up with her chest painting leader in [place], and no further neurological evaluation required. BARBARA Voice ID: [id number] Report ID: [id number]
[2018-03-17 05:26] LABS: Absolute Lymphocytes (CBC) 3.1 K/uL (0.7-4.9); Absolute Monocytes 1.3 K/uL (0.1-1.3); Absolute Neutrophil 17.5 K/uL (1.8-8.0); Basophils % 0.6 % (0-1.3); Eosinophils % 1.4 % (0-4.4); Hematocrit 38.9 % (36.0-45.0); Lymphocytes % 13.7 % (15.3-44.8); MCH 27.5 pg (27.0-35.0); MCV 83.3 fL (80-100); MPV 9.3 fL (7.6-11.3); Monocytes % 5.8 % (3.3-12.3); RBC Red Blood Cell Count 4.67 M/uL (3.86-4.86)
[2018-03-17 05:48] LABS: BUN Blood Urea Nitrogen 7 mg/dL (6-20); Bicarbonate 24 mEq/L (21-31); Glucose Level 111 mg/dL (65-120); Potassium 4.2 mEq/L (3.6-5.0); Sodium Level 142 mEq/L (135-145)
[2018-03-17 06:50] LABS: Blood Morphology Comment NOT SEEN (NOT SEEN); Platelet Estimate ADEQ
[2018-03-17] MEDS: LEVOTHYROXINE SOD 0.088 MG TAB PO SCH (07:32)
[2018-03-17] MEDS: ASPIRIN EC 81 MG TAB PO SCH (08:49)
[2018-03-17] MEDS: RANITIDINE 150 MG TABLET PO SCH ×2 (08:49→19:57)
[2018-03-17] MEDS ORDERED: VANCOMYCIN/NS 1 gm 1 GM/250 ML BAG IVPB SCH (10:00)
--- NOTE | 2018-03-17 10:19 | RAD REPORT ---
EXAM DESCRIPTION: RAD - Chest Single View - 03/17/2018 10:12 am CLINICAL HISTORY: Cough, altered mental status COMPARISON: March 12 TECHNIQUE: AP portable chest image was obtained 1001 hours . FINDINGS: Lungs are clear. Heart and vasculature are normal. No measurable pleural effusion and no p neumothorax. No gross bony abnormality seen. No acute aortic findings suspected. IMPRESSION: No acute cardiopulmonary process. No significant interval change.
[2018-03-17] MEDS: VANCOMYCIN 1.75 GM in NA CHLORIDE 0.9% 500 ML IVPB SCH (11:00)
--- NOTE | 2018-03-17 12:04 | EEG ---
CHART: [id number] TEST ID#: [id number] DATE OF STUDY: 03/13/2018 THE EEG WAS RECORDED PORTABLE IN THE PATIENT'S ROOM ON A 17 CHANNEL MACHINE. ELECTRODES WERE APPLIED IN THE USUAL MANNER USING THE INTERNATIONAL 10-20 SYSTEM. THE WAKING BACKGROUND RHYTHM IN THIS RECORD CONSISTS OF WELL DEVELOPED AND WELL ORGANIZED WAVES OF 9.5 HZ., MAXIMAL IN THE POSTERIOR HEAD REGIONS WHICH ATTENUATE NORMALLY WITH EYE OPENING. LOW-VOLTAGE 18-22 HZ ACTIVITY IS EXPRESSED IN THE FRONTAL REGIONS. THERE ARE NO FOCAL OR LATERALIZING FEATURES. NO EPILEPTIFORM ACTIVITY APPEARS. SLEEP DID NOT OCCUR. HYPERVENTILATION WAS NOT PERFORMED. PHOTIC STIMULATION PRODUCED FAIR DRIVING BILATERALLY. IMPRESSION: NORMAL EEG FOR THE AGE OF THE PATIENT IN [place] AND DROWSY STATES.
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
[2018-03-17 14:00] LABS: Urine Appearance CLEAR; Urine Bilirubin NEGATIVE (NEG); Urine Blood NEGATIVE (NEG); Urine Color YELLOW; Urine Glucose NEGATIVE (NEG); Urine Protein NEGATIVE (NEG); Urine Specific Gravity 1.025 (1.005-1.030); Urine Urobilinogen 0.2 mg/dL (0.2-1.0); Urine pH 6.5 (5.0-7.0)
[2018-03-17] MEDS ORDERED: HALOPERIDOL LACT 5 MG/ML INJ IM PRN (14:13)
[2018-03-17] MEDS ORDERED: DIPHENHYDRAMINE 50 MG/ML VIAL IM ONE (14:13)
[2018-03-17] MEDS ORDERED: HALOPERIDOL LACT 5 MG/ML INJ ONE (14:19)
[2018-03-17 14:43] LABS: Urine Bacteria NONE SEEN /HPF (<20); Urine Culture Reflex Order NOT NEEDED; Urine RBC NONE SEEN /HPF (NONE SEEN)
[2018-03-17 14:44] LABS: Calcium Oxalate Crystals- Ur FEW (NONE SEEN)
[2018-03-17] MEDS: ENOXAPARIN 40 MG/0.4 ML SQ SCH (16:55)
[2018-03-17] MEDS: PIPER/TAZO/NS 3.375gm 3.375 GM/100 ML BAG IVPB SCH ×2 (16:55→23:45)
[2018-03-17] MEDS: ATORVASTATIN 40 MG TAB PO SCH (19:57)
[2018-03-18] MEDS: VANCOMYCIN 1.75 GM in NA CHLORIDE 0.9% 500 ML IVPB SCH (05:00)
[2018-03-18] MEDS: LEVOTHYROXINE SOD 0.088 MG TAB PO SCH (08:43)
[2018-03-18] MEDS: ASPIRIN EC 81 MG TAB PO SCH (08:43)
[2018-03-18] MEDS: RANITIDINE 150 MG TABLET PO SCH (08:43)
[2018-03-18] MEDS: PIPER/TAZO/NS 3.375gm 3.375 GM/100 ML BAG IVPB SCH ×2 (08:44→17:00)
[2018-03-18 08:50] LABS: Bilirubin Total 0.8 mg/dL (0.3-1.2); Potassium 3.6 mEq/L (3.6-5.0); Protein, Total 7.4 g/dL (6.0-8.3)
[2018-03-18 09:06] LABS: Absolute Lymphocytes (CBC) 2.6 K/uL (0.7-4.9); Absolute Monocytes 1.1 K/uL (0.1-1.3); Absolute Neutrophil 17.9 K/uL (1.8-8.0); Basophils % 0.4 % (0-1.3); Hematocrit 40.3 % (36.0-45.0); Lymphocytes % 11.7 % (15.3-44.8); MCH 27.8 pg (27.0-35.0); MCV 83.4 fL (80-100); MPV 9.6 fL (7.6-11.3); RBC Red Blood Cell Count 4.83 M/uL (3.86-4.86)
[2018-03-18] MEDS: ENOXAPARIN 40 MG/0.4 ML SQ SCH (17:02)
[2018-03-18 17:22] VITALS: BP 147/89; TEMP 98.9
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
== END 2018-03-18 21:15 | DRG 689 ==
LOC: ER 21:32 → ERHOLD 23:54 → 4TH 03-13 00:24 → 3RD-ICU 03-13 15:55 → 2ND 03-14 11:17
PROVIDERS: ADMIT Hospitalist; ATTEND Family Medicine
PROC: 0T9B70Z Drainage of Bladder with Drainage Device, Via Natural or Artificial Opening (ICD-10-PCS; principal; 2018-03-12)
DX: N30.01 Acute cystitis with hematuria (principal); G93.41 Metabolic encephalopathy; Z68.41 Body mass index [BMI] 40.0-44.9, adult; I10 Essential (primary) hypertension; E87.6 Hypokalemia; E83.39 Other disorders of phosphorus metabolism; R41.0 Disorientation, unspecified; E03.9 Hypothyroidism, unspecified; G89.29 Other chronic pain; F41.9 Anxiety disorder, unspecified; R45.1 Restlessness and agitation; E66.01 Morbid (severe) obesity due to excess calories
CPT/HCPCS: 36415; 51702; 70450; 70544; 70549; 70551; 70553; 71045; 80048; 80053; 80076; 80307; 80320; 80329; 81001; 81003; 82550; 82553; 82607; 82962; 83605; 83690; 83735; 83880; 84100; 84132; 84145; 84146; 84443; 84484; 85025; 85610; 85730; 87040; 87086; 87088; 93005; 93306; 93880; 95816; 96361; 96365; 96375; 97163; 99285; A9577; J0696; J1630; J1650; J1953; J2543; J3486; J7030

== ENCOUNTER 2021-10-18 13:28 | Emergency (ER) | payer OTHER ==
--- OUTSIDE RECORDS SUMMARY | 2021-10-18 13:34 | XMS REPORT | Continuity of Care Document ---
:1955 Author Organization [facility] t Address [address] [place] [address] Care Team Providers Name Role Phone Chicas, E Primary Care Physician Shima DOLAN L Attending Clinician Jovanny RONQUILLO Attending Clinician Unavailable Doctor Unassigned, Name Attending Clinician Unavailable Esvin PAC, S Attending Clinician Pob, Lab Main Attending Clinician Unavailable Kal DOLAN Attending Clinician Karina DOLAN Attending Clinician Ela DOLAN Attending Clinician Shima DOLAN, L Admitting Clinician Payers Payer Name Policy Type Policy Number Effective Date Expiration Date S ource Problems Condition Condition Condition Status Onset Resolution Last Treating Co mments Source Name Details Category Date Date Treatment Clinician Date Primary Primary Disease Active Overview: Univ ers osteoarthr osteoarthr 2-06 Form[facility] ity of itis of itis of 00:00: g of this [place] left knee left knee 00 note Medi amish might be Branch different from the original. Added automatic ally from request for surgery [id number] No known No known Disease [facility] active active College problems problems of Medicin e Allergies, Adverse Reactions, Alerts Allergy Allergy Status Severity Reaction(s) Onset Inactive Treating Comm ents Source Name Type Date Date Clinician NO KNOWN Drug Active Univers ALLERGIE Class it[facility] of [facility] [place] [facility] Social History Social Habit Start Date Stop Date Quantity Comments Source History of tobacco Cigarette Smoker University of use [place] [facility] History SDOH University o f Alcohol Std Drinks [place] [facility] History SDOH University o f Alcohol Binge [place] [facility] History SDAZ University o f Alcohol Comment [place] [facility] Exposure to Not sure University of SARS-CoV-2 (event) [facility] Medicine History SDOH 2020-01-14 2020-01-14 1 University o f Alcohol Frequency 00:00:00 00:00:00 [facility] Branch Cigarettes smoked 2019-12-22 2019-12-22 Univers ity of current (pack per 00:00:00 00:00:00 [facility] ) - Reported Branch Cigarette 2019-12-22 2019-12-22 University of pack-years 00:00:00 00:00:00 [facility] Tobacco use and 2019-12-22 2019-12-22 Never used Universit y of exposure 00:00:00 00:00:00 [facility] Smoking Status Start Date Stop Date Source Unknown if ever smoked Universit y of [facility] Current every day smoker 2019-12-22 00:00:00 Uni versity of [facility] Current some day smoker 2019-08-26 00:00:00 [facility] Medications Ordered Filled Start Stop Current Ordering Indication Dosage Frequency Signature Comments Components Source Medication Medication Date Date Medication? Clinician (SIG) Name Name traMADoL 50 Yes 4647 50mg Take 1 Univ ers mg tablet 8-27 tablet by ity o f 00:00: mouth 00 every 4 Medical (four) Branch hours as needed for Pain (scale 7-10). Indication s: acute pain traMADoL 50 Yes [id number] 50mg Take 1 Univ ers mg tablet 8-27 tablet by ity o f 00:00: mouth [place] 00 every 4 Medical (four) Branch hours as needed for Pain (scale 7-10). Indication s: acute pain traMADoL 50 Yes [id number] 50mg Take 1 Univ ers mg tablet 8-27 tablet by ity o f 00:00: mouth [place] 00 every 4 Medical (four) Branch hours as needed for Pain (scale 7-10). Indication s: acute pain diclofenac Yes [id number] 75mg Take 1 U nivers 75 mg EC 7-28 tablet by ity of tablet 00:00: mouth (two) Medical times Branch daily with meals. diclofenac 2020-0 Yes [id number] 75mg Take 1 U nivers 75 mg EC 7-28 tablet by ity of tablet 00:00: mouth (two) Medical times Branch daily with meals. diclofenac 2020-0 Yes [id number] 75mg Take 1 U nivers 75 mg EC 7-28 tablet by ity of tablet 00:00: mouth (two) Medical times Branch daily with meals. diclofenac 2020-0 Yes [id number] 75mg Take 1 U nivers 75 mg EC 7-28 tablet by ity of tablet 00:00: mouth (two) Medical times Branch daily with meals. diclofenac 2020-0 Yes [id number] 75mg Take 1 U nivers 75 mg EC 7-28 tablet by ity of tablet 00:00: mouth (two) Medical times Branch daily with meals. diclofenac 2020-0 Yes [id number] 75mg Take 1 U nivers 75 mg EC 7-28 tablet by ity of tablet 00:00: mouth (two) Medical times Branch daily with meals. diclofenac 2020-0 Yes [id number] 75mg Take 1 U nivers 75 mg EC 7-28 tablet by ity of tablet 00:00: mouth (two) Medical times Branch daily with meals. diclofenac 2020-0 Yes [id number] 75mg Take 1 Univers 75 mg EC 7-28 tablet by ity of tablet 00:00: mouth (two) Medical times Branch daily with meals. diclofenac 2020-0 Yes [id number] 75mg Take 1 Univers 75 mg EC 7-28 tablet by ity of tablet 00:00: mouth (two) Medical times Branch daily with meals. meloxicam 2019-12- No 7.5mg Take 1 Univ ers (MOBIC) 7.5 0-16 12-16 tablet by it y of mg tablet 00:00: 05:59 mouth [place] 00 :00 daily Medical before a Branch meal for 60 days. meloxicam 2019-12 2020- No 7.5mg Take 1 Univ ers (MOBIC) 7.5 0-16 12-16 tablet by it y of mg tablet 00:00: 05:59 mouth [place] 00 :00 daily Medical before a Branch meal for 60 days. meloxicam 2019-12- No 7.5mg Take 1 Univ ers (MOBIC) 7.5 0-16 16 tablet by it y of mg tablet 00:00: 05:59 mouth [place] 00 :00 daily Medical before a Branch meal for 60 days. meloxicam 2019- 2020- No 15mg Take 1 Unive rs 15 mg 3-19 04-19 tablet by ity of tablet 00:00: 04:59 mouth [place] 00 :00 daily for Medical 30 days. Branch meloxicam 2019- 2020- No 15mg Take 1 Unive rs 15 mg 3-19 04-19 tablet by ity of tablet 00:00: 04:59 mouth [place] 00 :00 daily for Medical 30 days. Branch meloxicam 2019-0 2020- No 15mg Take 1 Unive rs 15 mg 3-19 04-19 tablet by ity of tablet 00:00: 04:59 mouth [place] 00 :00 daily for Medical 30 days. Branch ceFAZolin Yes 2000mg 2 g (2,000 Univers in dextrose 2-17 mg), IV ity o f (iso-os) 13:30: Piggyback, [place] (ANCEF) 2 00 O.R. Medical gram/100 mL HOLDING Branc h Piggyback 2 ONCE, 1 g dose, Starting 01/17/20 at 0730, Until Discontinu ed, 100 mL, DSU Pre-op
Reason for Anti-Infec tive: Surgical Prophylaxi s
Surgi amish Prophylaxi s: Orthopaedi c
Durat ion of therapy: within 24 hours of surgery oxyCODONE-a 2019- No 2{tbl} 2 tablet, Univers cetaminophe 01-17 Oral, ity of n 12:30: 12:19 ONCE, 1 [place] (PERCOCET) 00 :00 dose, Mon Medi amish 5-325 mg 01/17/20 at Branc h per tablet 0630, 2 tablet Routine, DSU Pre-op gabapentin 2019- No 300mg 300 mg, Un [place] (NEURONTIN) 01-17 Oral, ity of capsule 300 12:00: 12:20 [place]CE, 1 [place] :[place] dose, [facility] Medical 01/17/20 at Branch 0600, Routine, DSU Pre-op celecoxib 2019- 2020- No 400mg 400 mg, Uni vers (CELEBREX) 01-17 Oral, ity of capsule 400 12:00: 12:19 [place]CE[place] 1 [place] mg [place] :[place] dose, [facility] Medical 01/17/20 at Branch 0600, Routine, DSU Pre-op lactated 2020- No 1000mL at 20 Unive rs ringers IV 01-17 mL/hr, ity of infusion 12:00: 12:22 1,000 mL, Don as 1,000 mL 00 :00 IV Medical Infusion, [place] ONCE, 1 dose, [facility] 01/17/20 at 0600, Routine, DSU Pre-op ceFAZolin 2019- No 2g Univers in dextrose 01-17 ity of (iso-os) 06:00: 17:59 [place] (ANCEF) 2 00 :00 Medical gram/100 mL Branch Piggyback 2 g oxyCODONE-a 2020- No 2{tbl} Uni vers cetaminophe 01-17 ity of n 06:00: 17:59 [place] (PERCOCET) 00 :00 Medical 5-325 mg Branch per tablet 2 tablet ALPRAZolam 0 Yes Univers 1 mg tablet -09 ity of 00:00: [place] [facility] atorvastati 2019-0 Yes Univer s n 20 mg -09 ity of tablet 00:00: Medical Branch ALPRAZolam 2020-0 Yes Univers 1 mg tablet -09 ity of 00:00: Medical Branch atorvastati 2020-0 Yes Univer s n 20 mg -09 ity of tablet 00:00: [place] [facility] ALPRAZolam 2020-0 Yes Univers 1 mg tablet -09 ity of 00:00: Medical [place] atorvastati 2020-0 Yes Univer s n 20 mg -09 ity of tablet 00:00: Medical Branch ALPRAZolam 2020-0 Yes Univers 1 mg tablet -09 ity of 00:00: Medical Branch atorvastati 2019-0 Yes Univer s n 20 mg 1-09 ity of tablet 00:00: [place] 00 Medical Branch ALPRAZolam 2020-0 Yes Univers 1 mg tablet 1-09 ity of 00:00: [place] [facility] atorvastati 2020-0 Yes Univer s n 20 mg 1-09 ity of tablet 00:00: Medical Branch ALPRAZolam 2020-0 Yes Univers 1 mg tablet 1-09 ity of 00:00: Medical Branch atorvastati 2020-0 Yes Univer s n 20 mg 1-09 ity of tablet 00:00: Medical Branch ALPRAZolam 2020-0 Yes as needed. U nivers 1 mg tablet 1-09 ity of 00:00: [place] [facility] ALPRAZolam 2020-0 Yes 1mg Take 1 mg Un xavier 1 mg tablet 1-09 by mouth ity of 00:00: as needed. [place] [facility] ALPRAZolam 2020-0 Yes 1mg Take 1 mg Un xavier 1 mg tablet 1-09 by mouth ity of 00:00: as needed. [place] [facility] ALPRAZolam 2020-0 Yes 1mg Take 1 mg Un xavier 1 mg tablet 1-09 by mouth ity of 00:00: as needed. [place] [facility] ALPRAZolam 2020-0 Yes 1mg Take 1 mg Un xavier 1 mg tablet 1-09 by mouth ity of 00:00: as needed. [place] [facility] ALPRAZolam 2020-0 Yes 1mg Take 1 mg Un xavier 1 mg tablet 1-09 by mouth ity of 00:00: as needed. [place] [facility] ALPRAZolam 2020-0 Yes 1mg Take 1 mg Un xavier 1 mg tablet 1-09 by mouth ity of 00:00: as needed. [place] [facility] ALPRAZolam 2020-0 Yes 1mg Take 1 mg Un xavier 1 mg tablet 1-09 by mouth ity of 00:00: as needed. [place] [facility] ALPRAZolam 2020-0 Yes 1mg Take 1 mg Un xavier 1 mg tablet 1-09 by mouth ity of 00:00: as needed. [place] [facility] ALPRAZolam 2020-0 Yes 1mg Take 1 mg Un xavier 1 mg tablet 1-09 by mouth ity of 00:00: as needed. [place] [facility] ALPRAZolam 2020-0 Yes 1mg Take 1 mg Un xavier 1 mg tablet 1-09 by mouth ity of 00:00: as needed. [place] [facility] ALPRAZolam 2020-0 Yes 1mg Take 1 mg Un xavier 1 mg tablet 1-09 by mouth ity of 00:00: as needed. [place] [facility] ALPRAZolam 2020-0 Yes 1mg Take 1 mg Un xavier 1 mg tablet 1-09 by mouth ity of 00:00: as needed. [place] [facility] ALPRAZolam 2020-0 Yes 1mg Take 1 mg Un xavier 1 mg tablet 1-09 by mouth ity of 00:00: as needed. [place] [facility] ALPRAZolam 2020-0 Yes 1mg Take 1 mg Un xavier 1 mg tablet 1-09 by mouth ity of 00:00: as needed. [place] [facility] ALPRAZolam 2020-0 Yes 1mg Take 1 mg Un xavier 1 mg tablet 1-09 by mouth ity of 00:00: as needed. [place] [facility] ALPRAZolam 2020-0 Yes 1mg Take 1 mg Un xavier 1 mg tablet 1-09 by mouth ity of 00:00: as needed. [place] [facility] ALPRAZolam 2020-0 Yes 1mg Take 1 mg Un xavier 1 mg tablet 1-09 by mouth ity of 00:00: as needed. [place] [facility] ALPRAZolam 2020-0 Yes 1mg Take 1 mg Un xavier 1 mg tablet 1-09 by mouth ity of 00:00: as needed. [place] [facility] ALPRAZolam 2020-0 Yes 1mg Take 1 mg Un xavier 1 mg tablet 1-09 by mouth ity of 00:00: as needed. [place] [facility] ALPRAZolam 2020-0 Yes 1mg Take 1 mg Un xavier 1 mg tablet 1-09 by mouth ity of 00:00: as needed. [place] [facility] ALPRAZolam 2020-0 Yes 1mg Take 1 mg Un xavier 1 mg tablet 1-09 by mouth ity of 00:00: as needed. [place] [facility] ALPRAZolam 2020-0 Yes 1mg Take 1 mg Un xavier 1 mg tablet 1-09 by mouth ity of 00:00: as needed. [place] [facility] ALPRAZolam 2020-0 Yes 1mg Take 1 mg Un xavier 1 mg tablet 1-09 by mouth ity of 00:00: as needed. [place] [facility] ALPRAZolam 2020-0 Yes 1mg Take 1 mg Un xavier 1 mg tablet 1-09 by mouth ity of 00:00: as needed. [place] [facility] ALPRAZolam 2020-0 Yes 1mg Take 1 mg Un xavier 1 mg tablet 1-09 by mouth ity of 00:00: as needed. [place] [facility] ALPRAZolam 2020-0 Yes 1mg Take 1 mg Un xavier 1 mg tablet 1-09 by mouth ity of 00:00: as needed. [place] [facility] ALPRAZolam 2020-0 Yes 1mg Take 1 mg Un xavier 1 mg tablet 1-09 by mouth ity of 00:00: as needed. [place] [facility] ALPRAZolam 2020-0 Yes 1mg Take 1 mg Un xavier 1 mg tablet 1-09 by mouth ity of 00:00: as needed. [place] [facility] ALPRAZolam 2020-0 Yes 1mg Take 1 mg Un xavier 1 mg tablet 1-09 by mouth ity of 00:00: as needed. [place] [facility] ALPRAZolam 2020-0 Yes 1mg Take 1 mg Un xavier 1 mg tablet 1-09 by mouth ity of 00:00: as needed. [place] [facility] ALPRAZolam 2020-0 Yes 1mg Take 1 mg Un xavier 1 mg tablet 1-09 by mouth ity of 00:00: as needed. [place] [facility] ALPRAZolam 2020-0 Yes Univers 1 mg tablet 1-09 ity of 00:00: Medical Branch atorvastati 2020-0 Yes Univer s n 20 mg 1-09 ity of tablet 00:00: Medical Branch ALPRAZolam 2020-0 Yes Univers 1 mg tablet 1-09 ity of 00:00: [place] [facility] atorvastati 2020-0 Yes Univer s n 20 mg 1-09 ity of tablet 00:00: Medical Branch ALPRAZolam 2020-0 Yes Univers 1 mg tablet 1-09 ity of 00:00: Medical Branch atorvastati 2020-0 Yes Univer s n 20 mg 1-09 ity of tablet 00:00: [place] [facility] ALPRAZolam 2020-0 Yes Univers 1 mg tablet 1-09 ity of 00:00: [place] 00 Medical Branch atorvastati 2020-0 Yes Univer s n 20 mg 1-09 ity of tablet 00:00: [place] 00 Medical Branch atorvastati 2020-0 2020- No Unive rs n 20 mg 1-09 02-14 ity of tablet 00:00: 00:00 [place] 00 :00 Medical Branch amLODIPine 2020-0 Yes Univers 10 mg 1-08 ity of tablet 00:00: [place] 00 Medical Branch cyclobenzap 2020-0 Yes Univer s rine 5 mg 1-08 ity of tablet 00:00: [place] 00 Medical Branch hydroCHLORO 2020-0 Yes Univer s thiazide 25 1-08 ity of mg tablet 00:00: [place] 00 Medical Branch amLODIPine 2020-0 Yes Univers 10 mg 1-08 ity of tablet 00:00: [place] 00 Medical Branch cyclobenzap 2020-0 Yes Univer s rine 5 mg 1-08 ity of tablet 00:00: [place] 00 Medical Branch hydroCHLORO 2020-0 Yes Univer s thiazide 25 1-08 ity of mg tablet 00:00: [place] 00 Medical Branch amLODIPine 2020-0 Yes Univers 10 mg 1-08 ity of tablet 00:00: [place] 00 Medical Branch cyclobenzap 2020-0 Yes Univer s rine 5 mg 1-08 ity of tablet 00:00: [place] 00 Medical Branch hydroCHLORO 2020-0 Yes Univer s thiazide 25 1-08 ity of mg tablet 00:00: [place] 00 Medical Branch amLODIPine 2020-0 Yes Univers 10 mg 1-08 ity of tablet 00:00: [place] 00 Medical Branch cyclobenzap 2020-0 Yes Univer s rine 5 mg 1-08 ity of tablet 00:00: [place] 00 Medical Branch hydroCHLORO 2020-0 Yes Univer s thiazide 25 1-08 ity of mg tablet 00:00: [place] 00 Medical Branch amLODIPine 2020-0 Yes Univers 10 mg 1-08 ity of tablet 00:00: [place] 00 Medical Branch cyclobenzap 2020-0 Yes Univer s rine 5 mg 1-08 ity of tablet 00:00: [place] [address] Medical Branch hydroCHLORO 2020-0 Yes Univer s thiazide 25 1-08 ity of mg tablet 00:00: [place] 00 Medical Branch amLODIPine 2020-0 Yes Univers 10 mg 1-08 ity of tablet 00:00: Medical Branch cyclobenzap 2020-0 Yes Univer s rine 5 mg 1-08 ity of tablet 00:00: [place] [facility] hydroCHLORO 2020-0 Yes Univer s thiazide 25 1-08 ity of mg tablet 00:00: [place] [facility] amLODIPine 2020-0 Yes Univers 10 mg 1-08 ity of tablet 00:00: [place] [facility] cyclobenzap 2020-0 Yes 5mg Take 5 mg U nivers rine 5 mg 1-08 by mouth 3 ity of tablet 00:00: (three) [place] 00 times Medical daily. Branch hydroCHLORO 2020-0 Yes Univer s thiazide 25 1-08 ity of mg tablet 00:00: [place] [facility] amLODIPine 2020-0 Yes 10mg Take 10 mg U nivers 10 mg 1-08 by mouth ity of tablet 00:00: daily. [place] [facility] cyclobenzap 2020-0 Yes 5mg Take 5 mg U nivers rine 5 mg 1-08 by mouth 3 ity of tablet 00:00: (three) [place] times Medical daily. Branch hydroCHLORO 2020-0 Yes 25mg Take 25 mg Univers thiazide 25 1-08 by mouth ity of mg tablet 00:00: daily. [place] [facility] amLODIPine 2020-0 Yes 10mg Take 10 mg U nivers 10 mg 1-08 by mouth ity of tablet 00:00: daily. [place] [facility] cyclobenzap 2020-0 Yes 5mg Take 5 mg U nivers rine 5 mg 1-08 by mouth 3 ity of tablet 00:00: (three) [place] times Medical daily. Branch hydroCHLORO 2020-0 Yes 25mg Take 25 mg Univers thiazide 25 1-08 by mouth ity of mg tablet 00:00: daily. [place] [facility] amLODIPine 2020-0 Yes 10mg Take 10 mg U nivers 10 mg 1-08 by mouth ity of tablet 00:00: daily. [place] [facility] cyclobenzap 2020-0 Yes 5mg Take 5 mg U nivers rine 5 mg 1-08 by mouth 3 ity of tablet 00:00: (three) [place] times Medical daily. Branch hydroCHLORO 2020-0 Yes 25mg Take 25 mg Univers thiazide 25 1-08 by mouth ity of mg tablet 00:00: daily. Medical Branch amLODIPine 2020-0 Yes 10mg Take 10 mg U nivers 10 mg 1-08 by mouth ity of tablet 00:00: daily. Medical Branch cyclobenzap 2020-0 Yes 5mg Take 5 mg U nivers rine 5 mg 1-08 by mouth 3 ity of tablet 00:00: (three) [place] 00 times Medical daily. Branch hydroCHLORO 2020-0 Yes 25mg Take 25 mg Univers thiazide 25 1-08 by mouth ity of mg tablet 00:00: daily. Medical Branch amLODIPine 2020-0 Yes 10mg Take 10 mg U nivers 10 mg 1-08 by mouth ity of tablet 00:00: daily. Medical Branch cyclobenzap 2020-0 Yes 5mg Take 5 mg U nivers rine 5 mg 1-08 by mouth 3 ity of tablet 00:00: (three) [place] times Medical daily. Branch hydroCHLORO 2020-0 Yes 25mg Take 25 mg Univers thiazide 25 1-08 by mouth ity of mg tablet 00:00: daily. [place] [facility] amLODIPine 2020-0 Yes 10mg Take 10 mg U nivers 10 mg 1-08 by mouth ity of tablet 00:00: daily. [place] [facility] cyclobenzap 2020-0 Yes 5mg Take 5 mg U nivers rine 5 mg 1-08 by mouth 3 ity of tablet 00:00: (three) times Medical daily. Branch amLODIPine 2020-0 Yes 10mg Take 10 mg U nivers 10 mg 1-08 by mouth ity of tablet 00:00: daily. [place] [facility] hydroCHLORO 2020-0 Yes 25mg Take 25 mg Univers thiazide 25 1-08 by mouth ity of mg tablet 00:00: daily. [place] [facility] amLODIPine 2020-0 Yes 10mg Take 10 mg U nivers 10 mg 1-08 by mouth ity of tablet 00:00: daily. [place] [facility] cyclobenzap 2020-0 Yes 5mg Take 5 mg U nivers rine 5 mg 1-08 by mouth 3 ity of tablet 00:00: (three) [place] 00 times Medical daily. Branch cyclobenzap 2020-0 Yes 5mg Take 5 mg U nivers rine 5 mg 1-08 by mouth 3 ity of tablet 00:00: (three) [place] 00 times Medical daily. Branch hydroCHLORO 2020-0 Yes 25mg Take 25 mg Univers thiazide 25 1-08 by mouth ity of mg tablet 00:00: daily. Medical Branch amLODIPine 2020-0 Yes 10mg Take 10 mg U nivers 10 mg 1-08 by mouth ity of tablet 00:00: daily. Medical Branch cyclobenzap 2020-0 Yes 5mg Take 5 mg U nivers rine 5 mg 1-08 by mouth 3 ity of tablet 00:00: (three) [place] times Medical daily. Branch hydroCHLORO 2020-0 Yes 25mg Take 25 mg Univers thiazide 25 1-08 by mouth ity of mg tablet 00:00: daily. Medical Branch amLODIPine 2020-0 Yes 10mg Take 10 mg U nivers 10 mg 1-08 by mouth ity of tablet 00:00: daily. Medical Branch hydroCHLORO 2020-0 Yes 25mg Take 25 mg Univers thiazide 25 1-08 by mouth ity of mg tablet 00:00: daily. Medical Branch cyclobenzap 2020-0 Yes 5mg Take 5 mg U nivers rine 5 mg 1-08 by mouth 3 ity of tablet 00:00: (three) [place] Medical daily. Branch hydroCHLORO 2020-0 Yes 25mg Take 25 mg Univers thiazide 25 1-08 by mouth ity of mg tablet 00:00: daily. Medical Branch amLODIPine 2020-0 Yes 10mg Take 10 mg U nivers 10 mg 1-08 by mouth ity of tablet 00:00: daily. Medical Branch cyclobenzap 2020-0 Yes 5mg Take 5 mg U nivers rine 5 mg 1-08 by mouth 3 ity of tablet 00:00: (three) [place] times Medical daily. Branch hydroCHLORO 2020-0 Yes 25mg Take 25 mg Univers thiazide 25 1-08 by mouth ity of mg tablet 00:00: daily. Medical Branch amLODIPine 2020-0 Yes 10mg Take 10 mg U nivers 10 mg 1-08 by mouth ity of tablet 00:00: daily. Medical Branch cyclobenzap 2020-0 Yes 5mg Take 5 mg U nivers rine 5 mg 1-08 by mouth 3 ity of tablet 00:00: (three) [place] times Medical daily. Branch hydroCHLORO 2020-0 Yes 25mg Take 25 mg Univers thiazide 25 1-08 by mouth ity of mg tablet 00:00: daily. Medical Branch amLODIPine 2020-0 Yes 10mg Take 10 mg U nivers 10 mg 1-08 by mouth ity of tablet 00:00: daily. Medical Branch cyclobenzap 2020-0 Yes 5mg Take 5 mg U nivers rine 5 mg 1-08 by mouth 3 ity of tablet 00:00: (three) [place] times Medical daily. Branch hydroCHLORO 2020-0 Yes 25mg Take 25 mg Univers thiazide 25 1-08 by mouth ity of mg tablet 00:00: daily. Medical Branch amLODIPine 2020-0 Yes 10mg Take 10 mg U nivers 10 mg 1-08 by mouth ity of tablet 00:00: daily. Medical Branch cyclobenzap 2020-0 Yes 5mg Take 5 mg U nivers rine 5 mg 1-08 by mouth 3 ity of tablet 00:00: (three) [place] Medical daily. Branch hydroCHLORO 2020-0 Yes 25mg Take 25 mg Univers thiazide 25 1-08 by mouth ity of mg tablet 00:00: daily. Medical Branch amLODIPine 2020-0 Yes 10mg Take 10 mg U nivers 10 mg 1-08 by mouth ity of tablet 00:00: daily. Medical Branch cyclobenzap 2020-0 Yes 5mg Take 5 mg U nivers rine 5 mg 1-08 by mouth 3 ity of tablet 00:00: (three) [place] Medical daily. Branch hydroCHLORO 2020-0 Yes 25mg Take 25 mg Univers thiazide 25 1-08 by mouth ity of mg tablet 00:00: daily. Medical Branch amLODIPine 2020-0 Yes 10mg Take 10 mg U nivers 10 mg 1-08 by mouth ity of tablet 00:00: daily. Medical Branch cyclobenzap 2020-0 Yes 5mg Take 5 mg U nivers rine 5 mg 1-08 by mouth 3 ity of tablet 00:00: (three) times Medical daily. Branch hydroCHLORO 2020-0 Yes 25mg Take 25 mg Univers thiazide 25 1-08 by mouth ity of mg tablet 00:00: daily. Medical Branch amLODIPine 2020-0 Yes 10mg Take 10 mg U nivers 10 mg 1-08 by mouth ity of tablet 00:00: daily. Medical Branch cyclobenzap 2020-0 Yes 5mg Take 5 mg U nivers rine 5 mg 1-08 by mouth 3 ity of tablet 00:00: (three) [place] times Medical daily. Branch hydroCHLORO 2020-0 Yes 25mg Take 25 mg Univers thiazide 25 1-08 by mouth ity of mg tablet 00:00: daily. Medical Branch amLODIPine 2020-0 Yes 10mg Take 10 mg U nivers 10 mg 1-08 by mouth ity of tablet 00:00: daily. Medical Branch cyclobenzap 2020-0 Yes 5mg Take 5 mg U nivers rine 5 mg 1-08 by mouth 3 ity of tablet 00:00: (three) times Medical daily. Branch hydroCHLORO 2020-0 Yes 25mg Take 25 mg Univers thiazide 25 1-08 by mouth ity of mg tablet 00:00: daily. Medical Branch amLODIPine 2020-0 Yes 10mg Take 10 mg U nivers 10 mg 1-08 by mouth ity of tablet 00:00: daily. Medical Branch amLODIPine 2020-0 Yes 10mg Take 10 mg U nivers 10 mg 1-08 by mouth ity of tablet 00:00: daily. Medical Branch cyclobenzap 2020-0 Yes 5mg Take 5 mg U nivers rine 5 mg 1-08 by mouth 3 ity of tablet 00:00: (three) [place] times Medical daily. Branch hydroCHLORO 2020-0 Yes 25mg Take 25 mg Univers thiazide 25 1-08 by mouth ity of mg tablet 00:00: daily. Medical Branch amLODIPine 2020-0 Yes 10mg Take 10 mg U nivers 10 mg 1-08 by mouth ity of tablet 00:00: daily. Medical Branch cyclobenzap 2020-0 Yes 5mg Take 5 mg U nivers rine 5 mg 1-08 by mouth 3 ity of tablet 00:00: (three) times Medical daily. Branch hydroCHLORO 2020-0 Yes 25mg Take 25 mg Univers thiazide 25 1-08 by mouth ity of mg tablet 00:00: daily. Medical Branch amLODIPine 2020-0 Yes 10mg Take 10 mg U nivers 10 mg 1-08 by mouth ity of tablet 00:00: daily. Medical Branch cyclobenzap 2020-0 Yes 5mg Take 5 mg U nivers rine 5 mg 1-08 by mouth 3 ity of tablet 00:00: (three) [place] times Medical daily. Branch hydroCHLORO 2020-0 Yes 25mg Take 25 mg Univers thiazide 25 1-08 by mouth ity of mg tablet 00:00: daily. Medical Branch amLODIPine 2020-0 Yes 10mg Take 10 mg U nivers 10 mg 1-08 by mouth ity of tablet 00:00: daily. Medical Branch cyclobenzap 2020-0 Yes 5mg Take 5 mg U nivers rine 5 mg 1-08 by mouth 3 ity of tablet 00:00: (three) [place] times Medical daily. Branch hydroCHLORO 2020-0 Yes 25mg Take 25 mg Univers thiazide 25 1-08 by mouth ity of mg tablet 00:00: daily. Medical Branch hydroCHLORO 2020-0 Yes 25mg Take 25 mg Univers thiazide 25 1-08 by mouth ity of mg tablet 00:00: daily. Medical Branch amLODIPine 2020-0 Yes 10mg Take 10 mg U nivers 10 mg 1-08 by mouth ity of tablet 00:00: daily. Medical Branch cyclobenzap 2020-0 Yes 5mg Take 5 mg U nivers rine 5 mg 1-08 by mouth 3 ity of tablet 00:00: (three) [place] times Medical daily. Branch hydroCHLORO 2020-0 Yes 25mg Take 25 mg Univers thiazide 25 1-08 by mouth ity of mg tablet 00:00: daily. Medical Branch amLODIPine 2020-0 Yes 10mg Take 10 mg U nivers 10 mg 1-08 by mouth ity of tablet 00:00: daily. Medical Branch cyclobenzap 2020-0 Yes 5mg Take 5 mg U nivers rine 5 mg 1-08 by mouth 3 ity of tablet 00:00: (three) times Medical daily. Branch hydroCHLORO 2020-0 Yes 25mg Take 25 mg [facility] thiazide 25 1-08 by mouth ity of mg tablet 00:00: daily. Medical Branch amLODIPine 2020-0 Yes 10mg Take 10 mg U nivers 10 mg 1-08 by mouth ity of tablet 00:00: daily. Medical Branch cyclobenzap 2020-0 Yes 5mg Take 5 mg U nivers rine 5 mg 1-08 by mouth 3 ity of tablet 00:00: (three) [place] times Medical daily. Branch hydroCHLORO 2020-0 Yes 25mg Take 25 mg [facility] thiazide 25 1-08 by mouth ity of mg tablet 00:00: daily. Medical Branch amLODIPine 2020-0 Yes 10mg Take 10 mg U nivers 10 mg 1-08 by mouth ity of tablet 00:00: daily. Medical Branch cyclobenzap 2020-0 Yes 5mg Take 5 mg U nivers rine 5 mg 1-08 by mouth 3 ity of tablet 00:00: (three) [place] times Medical daily. Branch hydroCHLORO 2020-0 Yes 25mg Take 25 mg [facility] thiazide 25 1-08 by mouth ity of mg tablet 00:00: daily. Medical Branch amLODIPine 2020-0 Yes 10mg Take 10 mg U nivers 10 mg 1-08 by mouth ity of tablet 00:00: daily. Medical Branch cyclobenzap 2020-0 Yes 5mg Take 5 mg U nivers rine 5 mg 1-08 by mouth 3 ity of tablet 00:00: (three) [place] times Medical daily. Branch hydroCHLORO 2020-0 Yes 25mg Take 25 mg [facility] thiazide 25 1-08 by mouth ity of mg tablet 00:00: daily. Medical Branch amLODIPine 2020-0 Yes 10mg Take 10 mg U nivers 10 mg 1-08 by mouth ity of tablet 00:00: daily. Medical Branch cyclobenzap 2020-0 Yes 5mg Take 5 mg U nivers rine 5 mg 1-08 by mouth 3 ity of tablet 00:00: (three) [place] [facility] daily. Branch hydroCHLORO 2020-0 Yes 25mg Take 25 mg [facility] thiazide 25 1-08 by mouth ity of mg tablet 00:00: daily. Medical Branch amLODIPine 2020-0 Yes 10mg Take 10 mg U nivers 10 mg 1-08 by mouth ity of tablet 00:00: daily. Medical Branch hydroCHLORO 2020-0 Yes 25mg Take 25 mg [facility] thiazide 25 1-08 by mouth ity of mg tablet 00:00: daily. Medical Branch amLODIPine 2020-0 Yes 10mg Take 10 mg U nivers 10 mg 1-08 by mouth ity of tablet 00:00: daily. [place] [address] Medical Branch hydroCHLORO 2020-0 Yes 25mg Take 25 mg [facility] thiazide 25 1-08 by mouth ity of mg tablet 00:00: daily. [place] [address] Medical Branch amLODIPine 2020-0 Yes [facility] 10 mg 1-08 ity of tablet 00:00: [place] [address] Medical Branch cyclobenzap 2020-0 Yes Univer s rine 5 mg 1-08 ity of tablet 00:00: [place] [address] Medical Branch hydroCHLORO 2020-0 Yes Univer s thiazide 25 1-08 ity of mg tablet 00:00: [place] [address] Medical Branch amLODIPine 2020-0 Yes [facility] 10 mg 1-08 ity of tablet 00:00: [place] [address] Medical Branch cyclobenzap 2020-0 Yes Univer s rine 5 mg 1-08 ity of tablet 00:00: [place] [address] Medical Branch hydroCHLORO 2020-0 Yes Univer s thiazide 25 1-08 ity of mg tablet 00:00: [place] [address] Medical Branch amLODIPine 2020-0 Yes [facility] 10 mg 1-08 ity of tablet 00:00: [place] [address] Medical Branch cyclobenzap 2020-0 Yes Univer s rine 5 mg 1-08 ity of tablet 00:00: [place] [address] Medical Branch hydroCHLORO 2020-0 Yes Univer s thiazide 25 1-08 ity of mg tablet 00:00: [place] [address] Medical Branch amLODIPine 2020-0 Yes [facility] 10 mg 1-08 ity of tablet 00:00: [place] [address] Medical Branch cyclobenzap 2020-0 Yes Univer s rine 5 mg 1-08 ity of tablet 00:00: [place] [address] Medical Branch hydroCHLORO 2020-0 Yes Univer s thiazide 25 1-08 ity of mg tablet 00:00: [place] [address] Medical Branch cyclobenzap 2020-0 2021- No 5mg Take 5 mg [facility] rine 5 mg 1-08 08-27 by mouth 3 ity of tablet 00:00: 00:00 (three) [place] 00 :00 times Medical daily. Branch gabapentin 2018- Yes [facility] 300 mg 2-31 ity of capsule 00:00: [place] [address] Medical Branch levothyroxi 2018-12 Yes Gareth s ne 88 mcg 2-31 ity of tablet 00:00: [place] [address] Medical Branch gabapentin 2019- Yes [facility] 300 mg 2-31 ity of capsule 00:00: [place] [address] [facility] Branch levothyroxi 2018-12 Yes Univer s ne 88 mcg 2-31 ity of tablet 00:00: [place] [facility] gabapentin 2019- Yes [facility] 300 mg 2-31 ity of capsule 00:00: [place] [facility] levothyroxi 2019- Yes Univer s ne 88 mcg 2-31 ity of tablet 00:00: [place] [facility] gabapentin 2019- Yes [facility] 300 mg 2-31 ity of capsule 00:00: [place] [facility] levothyroxi 2019- Yes Univer s ne 88 mcg 2-31 ity of tablet 00:00: [place] [facility] gabapentin 2019- Yes [facility] 300 mg 2-31 ity of capsule 00:00: [place] [facility] levothyroxi 2019- Yes Univer s ne 88 mcg 2-31 ity of tablet 00:00: [place] [address] [facility] Branch gabapentin 2019- Yes [facility] 300 mg 2-31 ity of capsule 00:00: [place] [address] [facility] Branch levothyroxi 2019- Yes Univer s ne 88 mcg 2-31 ity of tablet 00:00: [place] [address] Medical Branch gabapentin 2019- Yes 2 (two) [facility] ers 300 mg 2-31 times ity of capsule 00:00: daily. [address] Branch levothyroxi 2019- Yes Univer s ne 88 mcg 2-31 ity of tablet 00:00: [place] [address] Medical Branch gabapentin 2019-1 Yes 300mg Take 300 Un [facility] 300 mg 2-31 mg by ity of capsule 00:00: mouth 2 [place] (two) Medical times Branch daily. levothyroxi 2019- Yes Univer s ne 88 mcg 2-31 ity of tablet 00:00: [place] [address] Medical Branch gabapentin 2019-1 Yes 300mg Take 300 Un [facility] 300 mg 2-31 mg by ity of capsule 00:00: mouth 2 [place] (two) Medical times Branch daily. levothyroxi 2019- Yes Univer s ne 88 mcg 2-31 ity of tablet 00:00: [place] [address] Medical Branch gabapentin 2019-1 Yes 300mg Take 300 Un [facility] 300 mg 2-31 mg by ity of capsule 00:00: mouth 2 [place] (two) Medical times Branch daily. levothyroxi 2019- Yes Univer s ne 88 mcg 2-31 ity of tablet 00:00: [place] [address] Medical Branch gabapentin 2019-1 Yes 300mg Take 300 Un [facility] 300 mg 2-31 mg by ity of capsule 00:00: mouth 2 (two) Medical times Branch daily. levothyroxi 2019 Yes Univer s ne 88 mcg 2-31 ity of tablet 00:00: Medical Branch gabapentin 2019- Yes 300mg Take 300 Un [facility] 300 mg 2-31 mg by ity of capsule 00:00: mouth 2 (two) Medical times Branch daily. levothyroxi 2019 Yes Univer s ne 88 mcg 2-31 ity of tablet 00:00: Medical Branch gabapentin 2018- Yes 300mg Take 300 Un [facility] 300 mg 2-31 mg by ity of capsule 00:00: mouth 2 (two) Medical times Branch daily. levothyroxi 2018-12 Yes Univer s ne 88 mcg 2-31 ity of tablet 00:00: Medical Branch gabapentin 2018- Yes 300mg Take 300 Un [facility] 300 mg 2-31 mg by ity of capsule 00:00: mouth 2 (two) Medical times Branch daily. levothyroxi 2018-12 Yes Univer s ne 88 mcg 2-31 ity of tablet 00:00: Medical Branch gabapentin 2018- Yes 300mg Take 300 Un [facility] 300 mg 2-31 mg by ity of capsule 00:00: mouth 2 () Medical times Branch daily. gabapentin 2018- Yes 300mg Take 300 Un [facility] 300 mg 2-31 mg by ity of capsule 00:00: mouth 2 (two) Medical times Branch daily. levothyroxi 2018-12 Yes Univer s ne 88 mcg 2-31 ity of tablet 00:00: Medical Branch gabapentin 2018-1 Yes 300mg Take 300 Un [facility] 300 mg 2-31 mg by ity of capsule 00:00: mouth 2 (two) Medical times Branch daily. levothyroxi 2019- Yes Univer s ne 88 mcg 2-31 ity of tablet 00:00: Medical Branch levothyroxi 2019- Yes Univer s ne 88 mcg 2-31 ity of tablet 00:00: Medical Branch gabapentin 2019- Yes 300mg Take 300 Un [facility] 300 mg 2-31 mg by ity of capsule 00:00: mouth 2 (two) Medical times Branch daily. levothyroxi 2018-12 Yes Univer s ne 88 mcg 2-31 ity of tablet 00:00: Medical Branch gabapentin 2019- Yes 300mg Take 300 Un [facility] 300 mg 2-31 mg by ity of capsule 00:00: mouth 2 (two) Medical times Branch daily. levothyroxi 2018-12 Yes Univer s ne 88 mcg 2-31 ity of tablet 00:00: Medical Branch gabapentin 2019- Yes 300mg Take 300 Un [facility] 300 mg 2-31 mg by ity of capsule 00:00: mouth 2 (two) Medical times Branch daily. levothyroxi 2018-12 Yes Univer s ne 88 mcg 2-31 ity of tablet 00:00: Medical Branch gabapentin 2018-1 Yes 300mg Take 300 Un [facility] 300 mg 2-31 mg by ity of capsule 00:00: mouth 2 (two) Medical times Branch daily. levothyroxi 2018-12 Yes Univer s ne 88 mcg 2-31 ity of tablet 00:00: Medical Branch gabapentin 2019-1 Yes 300mg Take 300 Un [facility] 300 mg 2-31 mg by ity of capsule 00:00: mouth 2 (two) Medical times Branch daily. levothyroxi 2018-12 Yes Univer s ne 88 mcg 2-31 ity of tablet 00:00: [place] [facility] gabapentin 2019-1 Yes 300mg Take 300 Un [facility] 300 mg 2-31 mg by ity of capsule 00:00: mouth 2 (two) Medical times Branch daily. levothyroxi 2018-12 Yes Univer s ne 88 mcg 2-31 ity of tablet 00:00: Medical Branch gabapentin 2019-1 Yes 300mg Take 300 Un [facility] 300 mg 2-31 mg by ity of capsule 00:00: mouth 2 (two) Medical times Branch daily. levothyroxi 2018-12 Yes Univer s ne 88 mcg 2-31 ity of tablet 00:00: [place] [facility] gabapentin 2019-1 Yes 300mg Take 300 Un [facility] 300 mg 2-31 mg by ity of capsule 00:00: mouth 2 (two) Medical times Branch daily. levothyroxi 2018-12 Yes Univer s ne 88 mcg 2-31 ity of tablet 00:00: Medical Branch gabapentin 2019- Yes 300mg Take 300 Un [facility] 300 mg 2-31 mg by ity of capsule 00:00: mouth 2 (two) Medical times Branch daily. levothyroxi 2019 Yes Univer s ne 88 mcg 2-31 ity of tablet 00:00: Medical Branch gabapentin 2019- Yes 300mg Take 300 Un [facility] 300 mg 2-31 mg by ity of capsule 00:00: mouth 2 (two) Medical times Branch daily. levothyroxi 2018-12 Yes Univer s ne 88 mcg 2-31 ity of tablet 00:00: Medical Branch gabapentin 2018- Yes 300mg Take 300 Un [facility] 300 mg 2-31 mg by ity of capsule 00:00: mouth 2 () Medical times Branch daily. gabapentin 2018- Yes 300mg Take 300 Un [facility] 300 mg 2-31 mg by ity of capsule 00:00: mouth 2 () Medical times Branch daily. levothyroxi 2018-12 Yes Univer s ne 88 mcg 2-31 ity of tablet 00:00: Medical Branch gabapentin 2018- Yes 300mg Take 300 Un [facility] 300 mg 2-31 mg by ity of capsule 00:00: mouth 2 () Medical times Branch daily. levothyroxi 2018-12 Yes Univer s ne 88 mcg 2-31 ity of tablet 00:00: Medical Branch levothyroxi 2019- Yes Univer s ne 88 mcg 2-31 ity of tablet 00:00: Medical Branch gabapentin 2019-1 Yes 300mg Take 300 Un [facility] 300 mg 2-31 mg by ity of capsule 00:00: mouth 2 (two) Medical times Branch daily. levothyroxi 2018- Yes Univer s ne 88 mcg 2-31 ity of tablet 00:00: Medical Branch gabapentin 2019-1 Yes 300mg Take 300 Un [facility] 300 mg 2-31 mg by ity of capsule 00:00: mouth 2 (two) Medical times Branch daily. levothyroxi 2019- Yes Univer s ne 88 mcg 2-31 ity of tablet 00:00: [place] [facility] gabapentin 2019-1 Yes 300mg Take 300 Un [facility] 300 mg 2-31 mg by ity of capsule 00:00: mouth 2 (two) Medical times Branch daily. levothyroxi 2019- Yes Univer s ne 88 mcg 2-31 ity of tablet 00:00: [place] [facility] gabapentin 2019-1 Yes 300mg Take 300 Un [facility] 300 mg 2-31 mg by ity of capsule 00:00: mouth 2 [place] (two) Medical times Branch daily. levothyroxi 2019- Yes Univer s ne 88 mcg 2-31 ity of tablet 00:00: [place] [facility] gabapentin 2019-1 Yes 300mg Take 300 Un x[facility] 300 mg 2-31 mg by ity of capsule 00:00: mouth 2 [place] (two) Medical times Branch daily. levothyroxi 2019 Yes Univer s ne 88 mcg 2-31 ity of tablet 00:00: [place] [facility] gabapentin 2019-1 Yes 300mg Take 300 Un [facility] 300 mg 2-31 mg by ity of capsule 00:00: mouth 2 [place] (two) Medical times Branch daily. levothyroxi 2019 Yes Betheler s ne 88 mcg 2-31 ity of tablet 00:00: [place] [facility] gabapentin 2019-1 Yes 300mg Take 300 Un [facility] 300 mg 2-31 mg by ity of capsule 00:00: mouth 2 [place] ([facility]) Medical times Branch daily. levothyroxi 2019 Yes Univer s ne 88 mcg 2-31 ity of tablet 00:00: [place] [address] Medical Branch gabapentin 2019-1 Yes 300mg Take 300 Un x[facility] 300 mg 2-31 mg by ity of capsule 00:00: mouth 2 [place] (two) Medical times Branch daily. levothyroxi 2019- Yes Betheler s ne 88 mcg 2-31 ity of tablet 00:00: [place] [facility] gabapentin 2019-1 Yes [facility] 300 mg 2-31 ity of capsule 00:00: [place] [facility] levothyroxi 2019- Yes Betheler s ne 88 mcg 2-31 ity of tablet 00:00: [place] [address] Medical Branch gabapentin 2019-1 Yes [facility] 300 mg 2-31 ity of capsule 00:00: [place] [facility] levothyroxi 2019- Yes Betheler s ne 88 mcg 2-31 ity of tablet 00:00: [place] 00 Medical Branch gabapentin 2019-1 Yes [facility] 300 mg 2-31 ity of capsule 00:00: [place] 00 Medical Branch levothyroxi 2019-1 Yes Univer s ne 88 mcg 2-31 ity of tablet 00:00: [place] 00 Medical Branch gabapentin 2019-1 Yes [facility] 300 mg 2-31 ity of capsule 00:00: [place] 00 Medical Branch levothyroxi 2019-1 Yes Univer s ne 88 mcg 2-31 ity of tablet 00:00: [place] 00 Medical Branch montelukast 2019-1 Yes Univer s 10 mg 2-09 ity of tablet 00:00: [place] 00 Medical Branch montelukast 2019-1 Yes Univer s 10 mg 2-09 ity of tablet 00:00: [place] 00 Medical Branch montelukast 2019-1 Yes Univer s 10 mg 2-09 ity of tablet 00:00: [place] 00 Medical Branch montelukast 2019-1 Yes Univer s 10 mg 2-09 ity of tablet 00:00: [place] 00 Medical Branch montelukast 2019-1 Yes Univer s 10 mg 2-09 ity of tablet 00:00: [place] 00 Medical Branch montelukast 2019-1 Yes Univer s 10 mg 2-09 ity of tablet 00:00: [place] 00 Medical Branch montelukast 2019-1 Yes Univer s 10 mg 2-09 ity of tablet 00:00: [place] 00 Medical Branch montelukast 2019-1 Yes Univer s 10 mg 2-09 ity of tablet 00:00: [place] 00 Medical Branch montelukast 2019-1 Yes Univer s 10 mg 2-09 ity of tablet 00:00: [place] 00 Medical Branch montelukast 2019-1 Yes Univer s 10 mg 2-09 ity of tablet 00:00: [place] 00 Medical Branch montelukast 2019-1 2020- No Unive rs 10 mg 2-09 02-14 ity of tablet 00:00: 00:00 [place] 00 :00 Medical Branch atorvastati 2019-0 Yes [facility] n (LIPITOR) 8-15 [place] 20 MG 00:00: of tablet 00 Medicin e cyclobenzap 2018- Yes [facility] rine 8-15 [place] (FLEXERIL) 00:00: of 5 MG tablet 00 Medicin e hydrochloro Yes [facility] thiazide 8-15 [facility] (HYDRODIURI 00:00: of L) 25 MG 00 Medicin tablet e levothyroxi 2019- Yes [facility] ne 8-15 [facility] (SYNTHROID) 00:00: of 88 MCG 00 Medicin tablet e alprazolam 2019-0 Yes [facility] (XANAX) 1 8-15 [facility] MG tablet 00:00: of 00 Medicin e amlodipine 2019-0 Yes [facility] (NORVASC) 8-15 [facility] 10 MG 00:00: of tablet 00 Medicin e atorvastati 2018-0 Yes [facility] n (LIPITOR) 8-15 [facility] 20 MG 00:00: of tablet 00 Medicin e cyclobenzap 2018- Yes [facility] rine 8-15 [facility] (FLEXERIL) 00:00: of 5 MG tablet 00 Medicin e hydrochloro 2018- Yes [facility] thiazide 8-15 [facility] (HYDRODIURI 00:00: of L) 25 MG 00 Medicin tablet e levothyroxi 2018- Yes [facility] ne 8-15 [facility] (SYNTHROID) 00:00: of 88 MCG 00 Medicin tablet e alprazolam 2018- Yes [facility] (XANAX) 1 8-15 [facility] MG tablet 00:00: of 00 Medicin e amlodipine 2019-0 Yes [facility] (NORVASC) 8-15 [facility] 10 MG 00:00: of tablet 00 Medicin e fluticasone 2018- Yes [facility] (FLONASE) 7-16 [place] 50 MCG/ACT 00:00: of nasal spray 00 Medicin e fluticasone 2018- Yes [facility] (FLONASE) 7-16 [place] 50 MCG/ACT 00:00: of nasal spray 00 Medicin e fluticasone 2019- Yes Univer s propionate 7-16 ity of 50 00:00: [place] mcg/actuati 00 Medical on nasal Branch spray fluticasone 2019-0 Yes Univer s propionate 7-16 ity of 50 00:00: [place] mcg/actuati 00 Medical on nasal Branch spray fluticasone 2018-0 Yes Univer s propionate 7-16 ity of 50 00:00: [place] mcg/actuati 00 Medical on nasal Branch spray fluticasone Yes Univer s propionate 7-16 ity of 50 00:00: [place] mcg/actuati 00 Medical on nasal Branch spray fluticasone 2019-0 Yes Univer s propionate 7-16 ity of 50 00:00: [place] mcg/actuati 00 Medical on nasal Branch spray fluticasone 2019-0 Yes Univer s propionate 7-16 ity of 50 00:00: [place] mcg/actuati 00 Medical on nasal Branch spray fluticasone 2019-0 Yes Univer s propionate 7-16 ity of 50 00:00: [place] mcg/actuati 00 Medical on nasal Branch spray fluticasone 2018-0 Yes 1{spray Use 1 Un [facility]avier propionate 7-16 } [place] in ity o f 50 00:00: each [place] mcg/actuati 00 nostril Medic al on nasal daily. Branch spray fluticasone 2018-0 Yes 1{spray Use 1 Un xavier propionate 7-16 } [place]el[place] in ity o f 50 00:00: each [place] mcg/actuati 00 nostril Medic al on nasal daily. Branch spray fluticasone 2018-0 Yes 1{spray Use 1 Un [facility]avier propionate 7-16 } [place] in ity o f 50 00:00: each [place] mcg/actuati 00 nostril Medic al on nasal daily. Branch spray fluticasone 2018-0 Yes 1{spray Use 1 Un xavier propionate 7-16 } [place]el[place] in ity o f 50 00:00: each [place] mcg/actuati 00 nostril Medic al on nasal daily. Branch spray fluticasone 2018-0 Yes 1{spray Use 1 Un [facility]avier propionate 7-16 } [place]el[place] in ity o f 50 00:00: each [place] mcg/actuati 00 nostril Medic al on nasal daily. Branch spray fluticasone 2018-0 Yes 1{spray Use 1 Un xavier propionate 7-16 } [place]el[place] in ity o f 50 00:00: each [place] mcg/actuati 00 nostril Medic al on nasal daily. Branch spray fluticasone 2018-0 Yes 1{spray Use 1 Un [facility]avier propionate 7-16 } [place]el[place] in ity o f 50 00:00: each [place] mcg/actuati 00 nostril Medic al on nasal daily. Branch spray fluticasone 2018-0 Yes 1{spray Use 1 Un [facility]avier propionate 7-16 } [place]el[place] in ity o f 50 00:00: each [place] mcg/actuati 00 nostril Medic al on nasal daily. Branch spray fluticasone 2019-0 Yes 1{spray Use 1 Un [facility]avier propionate 7-16 } Rapel[place] in ity o f 50 00:00: each [place] mcg/actuati 00 nostril Medic al on nasal daily. Branch spray fluticasone 2019-0 Yes 1{spray Use 1 Un xavier propionate 7-16 } [place]el[place] in ity o f 50 00:00: each [place] mcg/actuati 00 nostril Medic al on nasal daily. Branch spray fluticasone 2018-0 Yes 1{spray Use 1 Un [facility]avier propionate 7-16 } [place]el[place] in ity o f 50 00:00: each [place] mcg/actuati 00 nostril Medic al on nasal daily. Branch spray fluticasone 2018-0 Yes 1{spray Use 1 Un [facility]avier propionate 7-16 } [place] in ity o f 50 00:00: each [place] mcg/actuati 00 nostril Medic al on nasal daily. Branch spray fluticasone 2018-0 Yes 1{spray Use 1 Un [facility] propionate 7-16 } [place] in ity o f 50 00:00: each [place] mcg/actuati 00 nostril Medic al on nasal daily. Branch spray fluticasone 2018-0 Yes 1{spray Use 1 Un [facility] propionate 7-16 } [place] in ity o f 50 00:00: each [place] mcg/actuati 00 nostril Medic al on nasal daily. Branch spray fluticasone 2018-0 Yes 1{spray Use 1 Un [facility] propionate 7-16 } [place] in ity o f 50 00:00: each [place] mcg/actuati 00 nostril Medic al on nasal daily. Branch spray fluticasone 2018-0 Yes 1{spray Use 1 Un [facility]avier propionate 7-16 } [place] in ity o f 50 00:00: each [place] mcg/actuati 00 nostril Medic al on nasal daily. Branch spray fluticasone 2019-0 Yes 1{spray Use 1 Un [facility] propionate 7-16 } [place]el[place] in ity o f 50 00:00: each [place] mcg/actuati 00 nostril Medic al on nasal daily. Branch spray fluticasone 2018-0 Yes 1{spray Use 1 Un [facility] propionate 7-16 } [place] in ity o f 50 00:00: each [place] mcg/actuati 00 nostril Medic al on nasal daily. Branch spray fluticasone 2019-0 Yes 1{spray Use 1 Un [facility] propionate 7-16 } Rapel[place] in ity o f 50 00:00: each [place] mcg/actuati 00 nostril Medic al on nasal daily. Branch spray fluticasone 2019-0 Yes 1{spray Use 1 Un [facility] propionate 7-16 } Rapel[place] in ity o f 50 00:00: each [place] mcg/actuati 00 nostril Medic al on nasal daily. Branch spray fluticasone 2018-0 Yes 1{spray Use 1 Un [facility]avier propionate 7-16 } Rapelje in ity o f 50 00:00: each [place] mcg/actuati 00 nostril Medic al on nasal daily. Branch spray fluticasone 2018-0 Yes 1{spray Use 1 Un [facility]avier propionate 7-16 } Rapelje in ity o f 50 00:00: each [place] mcg/actuati 00 nostril Medic al on nasal daily. Branch spray fluticasone 2018-0 Yes 1{spray Use 1 Un [facility] propionate 7-16 } Rapelje in ity o f 50 00:00: each [place] mcg/actuati 00 nostril Medic al on nasal daily. Branch spray fluticasone 2018-0 Yes 1{spray Use 1 Un [facility] propionate 7-16 } Rapelje in ity o f 50 00:00: each [place] mcg/actuati 00 nostril Medic al on nasal daily. Branch spray fluticasone 2018-0 Yes 1{spray Use 1 Un [facility] propionate 7-16 } Rapelje in ity o f 50 00:00: each [place] mcg/actuati 00 nostril Medic al on nasal daily. Branch spray fluticasone 2018-0 Yes 1{spray Use 1 Un [facility] propionate 7-16 } Rapelje in ity o f 50 00:00: each [place] mcg/actuati 00 nostril Medic al on nasal daily. Branch spray fluticasone 2019-0 Yes 1{spray Use 1 Un [facility] propionate 7-16 } Rapelje in ity o f 50 00:00: each [place] mcg/actuati 00 nostril Medic al on nasal daily. Branch spray fluticasone 2018-0 Yes 1{spray Use 1 Un [facility] propionate 7-16 } Rapelje in ity o f 50 00:00: each [place] mcg/actuati 00 nostril Medic al on nasal daily. Branch spray fluticasone Yes 1{spray Use 1 Un [facility] propionate 7-16 } Rapelje in ity o f 50 00:00: each [place] mcg/actuati 00 nostril Medic al on nasal daily. Branch spray fluticasone Yes 1{spray Use 1 Un [facility] propionate 7-16 } Rapelje in ity o f 50 00:00: each [place] mcg/actuati 00 nostril Medic al on nasal daily. Branch spray fluticasone Yes 1{spray Use 1 Un [facility] propionate 7-16 } Rapelje in ity o f 50 00:00: each [place] mcg/actuati 00 nostril Medic al on nasal daily. Branch spray hydrocodone Yes 1{tbl} Take 1 Tab [facility] -acetaminop 3-27 by mouth 5 [facility] (NORCO) 00:00: times of 10-325 MG 00 daily for Medic in per tablet 30 days. e hydrocodone 2019- No 1{tbl} Take 1 Tab [facility] -acetaminop 3-27 - by mouth 5 [facility] (NORCO) 00:00: 00:00 times of 10-325 MG 00 :00 daily for Medic in per tablet 30 days. e gabapentin Yes Take two [facility] (NEURONTIN) 2-27 capsules Shawna ege 300 MG 00:00: three of capsule 00 times a Medicin day. e gabapentin Yes Take two [place] [facility] (NEURONTIN) 2-27 capsules Shawna ege 300 MG 00:00: three of capsule 00 times a Medicin day. e cyclobenzap Yes TAKE 1 [place] rine 2-27 TABLET BY [place] (FLEXERIL) 00:00: MOUTH 3 of 10 MG 00 TIMES A Medicin tablet DAY e cyclobenzap 2019- No TAKE 1 [place] [facility] rine 2-27 - TABLET BY [place] (FLEXERIL) 00:00: 00:00 MOUTH 3 of 10 MG 00 :00 TIMES A Medicin tablet DAY e Vital Signs Vital Name Observation Time Observation Value Comments Source Systolic blood 2021-06-27 21:31:00 130 mm[Hg] Univer sity of pressure [facility] Diastolic blood 2021-06-27 21:31:00 83 mm[Hg] [facility] Heart rate 2021-06-27 21:31:00 112 /min [facility] [place] [facility] Body height 2021-06-27 21:31:00 160 cm [facility] [place] [facility] Body weight 2021-06-27 21:31:00 121.564 kg [facility] [place] [facility] BMI 2021-06-27 21:31:00 47.47 kg/m2 [facility] [place] [facility] Systolic blood 2020-01-17 12:14:00 136 mm[Hg] [facility] sity of pressure [place] [facility] Diastolic blood 2020-01-17 12:14:00 53 mm[Hg] Unive rsity of pressure [place] [facility] Heart rate 2020-01-17 12:14:00 89 /min [facility] [place] [facility] Body temperature 2020-01-17 12:14:00 36.89 Nancy [facility] [place] [facility] Respiratory rate 2020-01-17 12:14:00 18 /min [facility] [place] [facility] Oxygen saturation in 2020-01-17 12:14:00 95 /min [facility] Arterial blood by [facility] Pulse oximetry Branch Body height 2020-01-14 15:00:00 160 cm [facility] [place] [facility] Body weight 2020-01-14 15:00:00 121.564 kg [facility] [place] [facility] BMI 2020-01-14 15:00:00 47.47 kg/m2 [facility] [place] [facility] Systolic blood 2020-01-04 15:13:00 119 mm[Hg] Univer sity of pressure [place] [facility] Diastolic blood 2020-01-04 15:13:00 80 mm[Hg] Unive rsity of pressure [place] [facility] Heart rate 2020-01-04 15:13:00 90 /min [facility] [place] [facility] Respiratory rate 2020-01-04 15:13:00 18 /min [facility] [place] [facility] Body height 2020-01-04 15:13:00 160 cm [facility] [place] [facility] Body weight 2020-01-04 15:13:00 121.564 kg [facility] [place] [facility] BMI 2020-01-04 15:13:00 47.47 kg/m2 [facility] [place] [facility] Oxygen saturation in 2020-01-04 15:13:00 98 /min [facility] of Arterial blood by [facility] Pulse oximetry Branch Systolic blood 2019-12-22 20:48:00 143 mm[Hg] Univer sity of pressure [facility] Diastolic blood 2019-12-22 20:48:00 84 mm[Hg] Unive rsity of pressure [facility] Heart rate 2019-12-22 20:48:00 107 /min [facility] Body height 2019-12-22 20:48:00 160 cm Universi ty of [facility] Body weight 2019-12-22 20:48:00 111.131 kg [facility]i [facility] of [facility] BMI 2019-12-22 20:48:00 43.40 kg/m2 Universi ty of [facility] Systolic blood 2019-08-26 14:26:00 133 mm[Hg] [facility] of pressure Medicine Diastolic blood 2019-08-26 14:26:00 80 mm[Hg] [facility] of pressure Medicine Heart rate 2019-08-26 14:26:00 95 /min [facility] ollege of Medicine Body height 2019-08-26 14:26:00 160 cm [facility] of Medicine Body weight 2019-08-26 14:26:00 111.585 kg [facility] of Medicine BMI 2019-08-26 14:26:00 43.58 kg/m2 [facility] of Medicine Systolic blood 2019-08-26 14:26:00 133 mm[Hg] [facility] of pressure Medicine Diastolic blood 2019-08-26 14:26:00 80 mm[Hg] [facility] of pressure Medicine Heart rate 2019-08-26 14:26:00 95 /min [facility] ollege of Medicine Body height 2019-08-26 14:26:00 160 cm [facility] ollege of Medicine Body weight 2019-08-26 14:26:00 111.585 kg [facility] ol[facility] of Medicine BMI 2019-08-26 14:26:00 43.58 kg/m2 [facility] ol[facility] of Medicine Systolic blood 2019-08-04 18:33:00 126 mm[Hg] [facility] of pressure Medicine Diastolic blood 2019-08-04 18:33:00 84 mm[Hg] [facility] of pressure Medicine Heart rate 2019-08-04 18:33:00 105 /min [facility] ol[facility] of Medicine Body height 2019-08-04 18:33:00 160 cm [facility] ollege of [facility] Body weight 2019-08-04 18:33:00 103.[address] [facility] BMI 2019-08-04 18:33:00 40.39 kg/m[facility] Systolic blood 2019-08-04 18:33:00 126 mm[Hg] [facility] pressure Medicine Diastolic blood 2019-08-04 18:33:00 84 mm[Hg] [facility] Medicine Heart rate 2019-08-04 18:33:00 105 /min [facility] ollege [facility] Body height 2019-08-04 18:33:00 160 cm [facility] Body weight 2019-08-04 18:33:[address] [address] BMI 2019-08-04 18:33:00 40.39 kg/m2 [facility] Procedures Procedure Date / Time Performing Clinician Source Performed EXTERNAL PROVIDER 2020-10-05 06:01:00 Doctor Unassigned, No [facility] RECORDS Name Medical Branch REFERRAL- 2020-08-22 05:01:00 Doctor Unassigned, No [facility]RESPONSE Name Medical Branch AUTHORIZATION FOR 2020-05-25 05:01:00 Doctor Unassigned, No [facility] RELEASE OF PHI Name Medical Branch EXTERNAL PROVIDER 2020-02-16 05:01:00 Doctor Unassigned, No [facility] RECORDS Name Medical Branch REFERRAL- 2020-01-31 06:01:00 Doctor Unassigned, No [facility] sit of [place] REQUEST/RESPONSE Name Medical Branch HB INDIRECT ANTIGLOBULIN 2020-01-17 12:10:00 [facility] XR CHEST 1 VW 2020-01-14 15:26:22 Priscilla Ronquillo [facility] ECHO ROUTINE W/DOPPLER 2020-01-04 20:59:30 Kaye Bowden [facility] COLOR Medical Branch ASSIGNMENT OF BENEFITS 2019-12-22 20:36:41 Doctor Unassigned, No [facility] Name Medical Branch Plan of Care Planned Activity Planned Date Details Comments Source Future Scheduled COLON CANCER [facility] ege Test SCREENING: of Medicine COLONOSCOPY [code = COLON CANCER SCREENING: COLONOSCOPY] Future Scheduled MAMMOGRAM ANNUAL [facility] College Test [code = MAMMOGRAM of Medicin e ANNUAL] Future Scheduled TETANUS SHOT Nilesh Shawna ege Test (ADULT) [code = of Medicine TETANUS SHOT (ADULT)] Future Scheduled BMI FOLLOW UP PLAN [employer] Test [code = BMI FOLLOW of Medici ne UP PLAN] Future Scheduled HEPATITIS C [facility] Shawna ege Test SCREENING [code = of Medicin e HEPATITIS C SCREENING] Future Scheduled HIV SCREENING [code [employer] Test = HIV SCREENING] of Medicine Future Scheduled CERVICAL CANCER [facility] C ollege Test SCREENING 3 YEAR of Medicine FOLLOW UP [code = CERVICAL CANCER SCREENING 3 YEAR FOLLOW UP] Future Scheduled FLU VACCINE > 6 [facility] C ollege Test MONTHS [code = FLU of Medici ne VACCINE > 6 MONTHS] Future Scheduled COLON CANCER Nilesh Shawna ege Test SCREENING: of Medicine COLONOSCOPY [code = COLON CANCER SCREENING: COLONOSCOPY] Future Scheduled MAMMOGRAM ANNUAL [facility] College Test [code = MAMMOGRAM of Medicin e ANNUAL] Future Scheduled TETANUS SHOT Nilesh Shawna ege Test (ADULT) [code = of Medicine TETANUS SHOT (ADULT)] Future Scheduled BMI FOLLOW UP PLAN [employer] Test [code = BMI FOLLOW of Medici ne UP PLAN] Future Scheduled HEPATITIS C Nilesh Shawna ege Test SCREENING [code = of Medicin e HEPATITIS C SCREENING] Future Scheduled HIV SCREENING [code [employer] Test = HIV SCREENING] of Medicine Future Scheduled CERVICAL CANCER Nilesh C ollege Test SCREENING 3 YEAR of Medicine FOLLOW UP [code = CERVICAL CANCER SCREENING 3 YEAR FOLLOW UP] Future Scheduled FLU VACCINE > 6 N[facility] C ollege Test MONTHS [code = FLU of Medici ne VACCINE > 6 MONTHS] Future Scheduled XR KNEE BILATERAL 1 Occurrences [employer] Test AP,LAT,OBLIQUE starting 08/04/2019 of Med icine [code = 34057-1] until 03/04/2020 Encounters Start End Encounter Admission Attending Care Care Encounter Source Date/Time Date/Time Type Type Clinicians Facility Department ID 2021-10-08 2021-10-08 Telephone ALANA Ronquillo 1.2.840.114 [id number] [facility] 00:00:00 00:00:00 Labtiva 350.1.13.10 it y of [place] 4.2.7.2.686 Don as YOGESH?BLEA [phone] [place] jeffry HAIRSTON [address] [place] [address] OFFICE [facility] 2021-10-05 2021-10-05 [facility] [id number] 3P-20 Univers 10:45:00 10:45:00 PRISCILLA [id number] ity [facility] 2021-10-05 2021-10-05 [facility] [id number] Univers 10:45:00 10:45:00 PRISCILLA ity [facility] 2021-09-13 2021-09-13 Telephone [facility] 1.2.840.114 [id number] Univers 00:00:00 00:00:00 [facility] 350.1.13.10 it y of [place] 4.2.7.2.686 Don as Yogesh?Blea [phone] [place] je[place] hairston [address] [place] [address] Office [facility] 2021-07-25 2021-07-25 Telephone [facility] 1.2.840.114 [id number] Univers 00:00:00 00:00:00 [facility] 350.1.13.10 it y of [place] 4.2.7.2.686 Don as Yogesh?Blea [phone] [place] jeff[place] hairston [address] [place] [address] Office [facility] 2021-07-20 2021-07-20 [facility] 1.2.840.114 [id number] Univers 00:00:00 00:00:00 Priscilla Mireles 350.1.13.10 i ty [place] [phone] [place] jeff[place] regan [address] [place] [address] 2021-07-06 2021-07-06 [facility] 1.2.840.114 [id number] Univers 00:00:00 00:00:00 [facility] 350.1.13.10 it y of Surgical 4.2.7.2.686 Don as Specialti [phone] [place] jeff[place] juarez [address] [place] [address] 2021-06-27 2021-06-27 [facility] 1.2.840.114 [id number] Univers 16:32:17 23:59:00 Encounter [facility] 350.1.13.10 ity of Surgical 4.2.7.2.686 Don as Specialti [phone] [place] dical es 809 [facility] 2021-06-27 2021-06-27 Office Shima [facility] 1.2.682.748 [id number] Univers 16:26:14 16:52:29 Visit Priscilla Woo 350.1.13.10 it y of Surgical 4.2.7.2.686 Don as Specialti [phone] [place] dical es 198 [facility] 2021-06-27 2021-06-27 [facility] [id number] 3P-20 Univers 16:15:00 16:15:00 PRISCILLA [id number] ity [facility] 2021-06-27 2021-06-27 [facility] [id number] Univers 16:15:00 16:15:00 PRISCILLA ity [facility] 2020-10-05 2020-10-05 Orders Doctor SCOTTIE 1.2.840.114 [id number] Univers 00:00:00 00:00:00 Only Unassigned, SON 350.1.13.10 ity of [place] [facility] 4.2.7.2.686 Don as [phone] [address] 2020-09-27 2020-09-27 Telephone [facility] 1.2.840.114 [id number] Univers 00:00:00 00:00:00 Priscilla Woo 350.1.13.10 it y of Surgical 4.2.7.2.686 Don as Specialti [phone] [place] dical es 198 [facility] 2020-09-15 2020-09-15 Telephone [facility] 1.2.840.114 [id number] Univers 00:00:00 00:00:00 [facility] 350.1.13.10 it y of Surgical 4.2.7.2.686 Don as Specialti [phone] [place] dical es 198 [facility] 2020-09-15 2020-09-15 Telephone [facility] 1.2.840.114 [id number] 00:00:00 00:00:00 [facility] 350.1.13.10 Surgical 4.2.7.2.686 Specialti [phone] es 198 [place] 2020-09-14 2020-09-14 Telephone Shima [facility] 1.2.840.114 [id number] Univers 00:00:00 00:00:00 [facility] 350.1.13.10 it y of Surgical 4.2.7.2.686 Don as Specialti [phone] [place] dical es 198 [facility] 2020-09-14 2020-09-14 Telephone Shima [facility] 1.2.840.114 [id number] Univers 00:00:00 00:00:00 [facility] 350.1.13.10 it y of Surgical 4.2.7.2.686 Don as Specialti [phone] [place] dical es 198 [facility] 2020-09-14 2020-09-14 Telephone Shima [facility] 1.2.840.114 [id number] 00:00:00 00:00:00 [facility] 350.1.13.10 Surgical 4.2.7.2.686 Specialti [phone] es 198 [place] 2020-09-14 2020-09-14 Telephone Shima [facility] 1.2.840.114 [id number] 00:00:00 00:00:00 [facility] 350.1.13.10 Surgical 4.2.7.2.686 Specialti [phone] es 198 [place] 2020-08-22 2020-08-22 Orders Doctor SCOTTIE 1.2.840.114 [id number] Univers 00:00:00 00:00:00 Only Unassigned, SON 350.1.13.10 ity of [place] [facility] 4.2.7.2.686 Don as [phone] [address] 2020-08-22 2020-08-22 Orders Doctor SCOTTIE 1.2.840.114 [id number] 00:00:00 00:00:00 Only Unassigned, SON 350.1.13.10 [place] [facility] 4.2.7.2.[id number] [facility] 2020-08-01 2020-08-01 Telephone [facility] 1.2.843.568 [id number] Univers 00:00:00 00:00:00 [facility] 350.1.13.10 it y of Surgical 4.2.7.2.686 Don as Specialti [phone] [place] dical es 198 [facility] 2020-07-31 2020-07-31 Telephone [facility] 1.2.840.114 [id number] Univers 00:00:00 00:00:00 [facility] 350.1.13.10 it y of Surgical 4.2.7.2.686 Don as Specialti [phone] [place] dical es 198 [facility] 2020-07-31 2020-07-31 Telephone [facility] 1.2.840.114 [id number] 00:00:00 00:00:00 [facility] 350.1.13.10 Surgical 4.2.7.2.686 Specialti [phone] es [place] 2020-07-14 2020-07-14 Telephone [facility] 1.2.840.114 [id number] Univers 00:00:00 00:00:00 [facility] 350.1.13.10 it y of Surgical 4.2.7.2.686 Don as Specialti [phone] [place] dical es 198 [facility] 2020-07-03 2020-07-03 [facility] 1.2.840.114 [id number] Univers 00:00:00 00:00:00 [facility] 350.1.13.10 it y of Surgical 4.2.7.2.686 Don as Specialti [phone] [place] dical es 198 [facility] 2020-05-26 2020-05-26 [place] [facility] 1.2.840.114 [id number] Univers 00:00:00 00:00:00 [facility] 350.1.13.10 it y of Surgical 4.2.7.2.686 Odn as Specialti [phone] [place] dical es 198 [facility] 2020-05-25 2020-05-25 Orders Doctor RUBIN 1.2.840.114 [id number] Univers 00:00:00 00:00:00 Only Unassigned, SON 350.1.13.10 ity of [place] [facility] 4.2.7.2.686 Don as [phone] [address] 2020-02-21 2020-02-21 Outpatient R SHIMA [facility] [id number] 3P-20 Univers 15:45:00 15:45:00 PRISCILLA [id number] ity of [facility] 2020-02-21 2020-02-21 Outpatient R SHIMA [facility] [id number] Univers 15:45:00 15:45:00 PRISCILLA ity of [facility] 2020-02-21 2020-02-21 Telemedici Tony Mcallister [facility] 1.2.840. 114 [id number] Univers 10:10:22 10:25:22 ne Visit Priscilla Ronquillo Health 350.1.13.10 ity of Surgical 4.2.7.2.686 Don as Specialti [phone] [place] dical es 198 [facility] 2020-02-16 2020-02-16 Orders Doctor RUBIN 1.2.840.114 [id number] Univers 00:00:00 00:00:00 Only Unassigned, SON 350.1.13.10 ity of [place] [facility] 4.2.7.2.686 Don as [phone] [address] 2020-02-15 2020-02-15 Telephone Shima [facility] 1.2.840.114 [id number] Univers 00:00:00 00:00:00 [facility] 350.1.13.10 it y of Surgical 4.2.7.2.686 Don as Specialti [phone] [place] dical es 198 [facility] 2020-02-07 2020-02-07 Telephone Shima SDGRECIA 1.2.840.114 [id number] Univers 00:00:00 00:00:00 [facility] 350.1.13.10 it y of Surgical 4.2.7.2.686 Don as Specialti [phone] [place] dical es 198 [facility] 2020-01-31 2020-01-31 Orders Doctor SCOTTIE 1.2.840.114 [id number] Univers 00:00:00 00:00:00 Only Unassigned, SON 350.1.13.10 ity of [place] [facility] 4.2.7.2.686 Don as [phone] [facility] [address] [place] 2020-01-20 2020-01-20 Telephone [facility] 1.2.840.114 [id number] Univers 00:00:00 00:00:00 [facility] 350.1.13.10 it y of Surgical 4.2.7.2.686 Don as Specialti [phone] [place] dical [place] 198 [facility] 2020-01-17 2020-01-17 [facility] 1.2.840.114 [id number] Univers 05:51:00 08:12:00 Encounter Priscilla Mireles 350.1.13.10 ity of [place] [phone] [facility] 071 [place] 2020-01-17 2020-01-17 Prep [facility] 1.2.840.114 [id number] Univers 00:00:00 00:00:00 Surgery [facility] 350.1.13.10 it y of Surgical 4.2.7.2.686 Don as Specialti [phone] [place] dical es 198 [facility] 2020-01-14 2020-01-14 [facility] 1.2.840.114 [id number] Univers 08:15:00 23:59:00 Encounter Priscilla Mireles 350.1.13.10 ity of [place].2.[place] [phone] [facility] 807 [place] 2020-01-14 2020-01-14 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 Loader Operator Ruperto May Lab Main [facility] 1.2.8 40.114 [id number] Univers 08:50:58 09:05:58 Visit Priscilla Ronquillo 350.1.13.10 ity of [place] [phone] [place] dical nal 353 [facility] 2020-01-06 2020-01-06 Telephone [facility] 1.2.840.114 [id number] Univers 00:00:00 00:00:00 [facility]isc[facility] 350.1.13.10 it y of Surgical 4.2.7.2.686 Don as Specialti [phone] [place] dical es 198 [facility] 2020-01-04 2020-01-05 Office [facility] 1.2.840.114 [id number] Univers 09:03:22 11:43:23 Visit Kaye [place] 350.1.13.10 ity of [place].2.[place] [phone] [place] dical nal 059 [facility] 2019-12-30 2019-12-30 Letter [facility] 1.2.230.694 [id number] Univers 00:00:00 00:00:00 (Out) Priscilla Petty [facility] 350.1.13.10 it y of Surgical 4.2.7.2.686 Don as Specialti [phone] [place] dical es 198 [facility] 2019-12-22 2019-12-22 [facility] 1.2.840.114 [id number] Univers 14:43:00 23:59:00 Encounter Priscilla Petty [facility] 350.1.13.10 ity of Surgical 4.2.7.2.686 Don as Specialti [phone] Me dical es 809 [facility] 2019-12-22 2019-12-22 Office [facility] 1.2.939.496 [id number] Univers 14:38:34 15:31:48 Visit Priscilla Petty [facility] 350.1.13.10 it y of Surgical 4.2.7.2.686 Don as Specialti [phone] [place] dical es 198 [facility] 2019-12-22 2019-12-22 Orders Doctor SCOTTIE 1.2.840.114 [id number] Univers 00:00:00 00:00:00 Only Unassigned, SON 350.1.13.10 ity of [place] [facility] 4.2.7.2.686 Don as [phone] [facility] amish [address] [place] 2019-08-26 2019-08-26 Office HAO Collins 1.2.840.[id number] [place] [address] 09:15:16 09:45:16 Visit Rito AMBULATOR 350.1.13.21 College Y 0.2.7.2.686 of [phone] [facility] keena 800 e 2019-08-26 2019-08-26 Office HAO Collins 1.2.840.114 [id number] [facility] 09:15:16 09:45:16 Visit Rito AMBULATOR 350.1.13.21 Y 0.2.7.2.686 [id number] 800 2019-08-04 2019-08-04 Office Satish Mahmood 1.2.840.114 [id number] 12:59:13 15:19:21 Visit AMBULATOR 350.1.13.21 Y 0.2.7.2.686 [id number] 800 2019-08-04 2019-08-04 Office Satish Mahmood 1.2.840.114 [id number] [facility] 12:59:13 15:19:21 Visit AMBULATOR 350.1.13.21 College Y 0.2.7.2.686 of [phone] [facility] 800 e Results Test Description Test Time Test Comments Results Result Comments Source Type and Screen - ONCE Routine 2020-01-17 14:07:40 Test Item Value Reference Range Interpretation Comme nts IAT (test code = 1185) Negative Perfo rmed at [facility] Laboratory Services [facility] Blood [address] [place], [place] [id number] Free: [phone] A No. [id number] ABO & RH (test code = 20) AB Positive Pe rformed at [facility] Laboratory [facility] Blood [address] [place], [place] [id number] Free: [phone] A No. [id number] [facility] [id number] 17:25:57 No acute cardiopulmonary process. Preliminary Report Dictated by Resident: Miko Dhaliwal MD., have reviewed this study and agree with theabove report.EXAM: XR CHEST 1 VW COMPARISON: None. HISTORY: Surgery ? TECHNIQUE: AP view ?of the chest. FINDINGS: Lungs/pleura: ?The lungs areclear. No pleural effusion or pneumothorax isidentified. Heart/Mediastinum: Heart size is at upper limit of normal to borderlineenlarged. No acute osseous abnormality. [facility], Radiant Results Inft User -01/14/2020 11:27 AM CSTEXAM: XR CHEST 1 VWCOMPARISON: None.HISTORY: Surgery TECHNIQUE: AP view of the chest.FINDINGS:Lungs/pleura: The lungs are clear. No pleural effusion or pneumothorax isidentifie d.Heart/Mediastinum: Heart size is at upper limit of normal to borderlineenlarged.No acute osseous abnormality.IMPRESSIONNo acute cardiopulmonary process. Preliminary Report Dictated by Resident: Miko Soto MD., have reviewed this study and agree with theabove report.[facility]
[2021-10-18 14:33] LABS: Absolute Lymphocytes (CBC) 1.2 K/uL (0.7-4.9); Basophils % 0.4 % (0-1.3); Hematocrit 40.8 % (36.0-45.0); Lymphocytes % 5.1 % (15.3-44.8); MPV 7.8 fL (7.6-11.3); RBC Red Blood Cell Count 5.07 M/uL (3.86-4.86)
[2021-10-18 14:38] LABS: Protime INR 1.11
[2021-10-18 14:47] LABS: ALT/SGPT 16 U/L (12-78); AST/SGOT 15 U/L (15-37); Albumin 3.7 g/dL (3.4-5.0); Alkaline Phosphatase 113 U/L (45-117); BUN Blood Urea Nitrogen 13 mg/dL (7-18); Bicarbonate 25 mmol/L (21-32); Bilirubin Direct 0.2 mg/dL (0-0.2); Bilirubin Total 0.8 mg/dL (0.2-1.0); Glucose Level 140 mg/dL (74-106); Potassium 2.8 mmol/L (3.5-5.1); Protein, Total 8.9 g/dL (6.4-8.2); Sodium Level 136 mmol/L (136-145)
[2021-10-18 15:49] LABS: Barbiturates NEGATIVE (NEGATIVE); Benzodiazepines POSITIVE (NEGATIVE); Cocaine NEGATIVE (NEGATIVE); METHAMPHETAM NEGATIVE (NEGATIVE); Methadone NEGATIVE (NEGATIVE); Opiates NEGATIVE (NEGATIVE); Phencyclidine NEGATIVE (NEGATIVE); THC Cannibis NEGATIVE (NEGATIVE)
[2021-10-18] MEDS ORDERED: SMZ./TMP. 800/160 MG TABLET ONE (17:14)
[2021-10-18] MEDS ORDERED: POTASSIUM CL SA 10 MEQ TAB PO ONE (17:15)
[2021-10-18] MEDS ORDERED: POTASSIUM 25 MEQ EFFERV TAB ONE (18:52)
[2021-10-18 20:33] LABS: Blood Morphology Comment NOT SEEN (NOT SEEN); Platelet Estimate ADEQ
[2021-10-18 22:10] LABS: Urine Blood NEGATIVE (Negative); Urine Glucose NEGATIVE (Negative); Urine Protein 2+ (Negative); Urine pH 6.5 (5.0-7.0)
[2021-10-19] MEDS ORDERED: NA CHLORIDE 0.9% 1,000 ML ONE (10:26)
--- NOTE | 2021-10-19 13:19 | EKG ---
Test Date: 2021-10-18 Test Time: 14:19:43 Wire Bender: MEASUREMENT RESULTS: Intervals: Rate: 114 AL: 134 QRSD: 90 QT: 336 QTc: 463 [place]: P: 37 AL: 134 QRS: 262 T: 18 INTERPRETIVE STATEMENTS: Sinus tachycardia with occasional premature ventricular complexes Right superior axis deviation Cannot rule out Anterior infarct, age undetermined Abnormal ECG Compared to ECG 03/13/2018 16:45:33 Ventricular premature complex(es) now present Right superior axis now present Myocardial infarct finding now present Sinus rhythm no longer present Left-axis deviation no longer present Electronically Signed On 10-19-21 13:16:33 AIR MOTOR REPAIRER by Matt Arreola
[2021-10-19 13:51] LABS: Absolute Lymphocytes (CBC) 2.7 K/uL (0.7-4.9); Basophils % 0.9 % (0-1.3); Hematocrit 40.3 % (36.0-45.0); Lymphocytes % 12.2 % (15.3-44.8); MPV 8.2 fL (7.6-11.3); RBC Red Blood Cell Count 4.94 M/uL (3.86-4.86)
[2021-10-19 14:04] LABS: Potassium 3.4 mmol/L (3.5-5.1)
[2021-10-19 15:19] LABS: Blood Morphology Comment NOT SEEN (NOT SEEN); Platelet Estimate INCR; White Blood Cell Scan OK (OK)
[2021-10-20] MEDS ORDERED: LORazepam 2 MG/ML VIAL ONE (00:06)
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
[2021-10-20 14:52] VITALS: BP 116/63; TEMP 97.6; O2SAT 97
[2021-10-29 12:32] LABS: Urine Blood Negative (Negative); Urine Glucose Negative (Negative); Urine Protein 2+ (Negative); Urine Specific Gravity >=1.030 (1.005-1.030); Urine pH 6.5 (5.0-7.0)
== END 2021-10-20 14:35 ==
LOC: ER 13:28
DX: R45.1 Restlessness and agitation (principal); R45.850 Homicidal ideations; F41.8 Other specified anxiety disorders; I10 Essential (primary) hypertension; Z20.822 Contact with and (suspected) exposure to COVID-19
CPT/HCPCS: 96365; 93005; 87088; 85025; 87086; 80048; 36415; 80320; 80329 ×2; 84132; 85610; 80076; 85730; 81003 ×2; 80307; 96372; 99285; 96366; U0003